=== PATIENT | female | born 1940 ===

== ENCOUNTER → 2020-10-22 10:33 | Outpatient (CLI) | payer MEDICARE, OTHER, SELFPAY ==
--- NOTE | 2020-10-22 | DI.MRI.S_ITS ---
PROCEDURE: MR KNEE LT WO CON INDICATIONS: UNILATERAL PRIMARY OSTEOARTHRITIS TECHNIQUE: Noncontrast sagittal PD fast spin echo and T2 fast spin echo with fat saturation, sagittal 3-D FLASH with fat saturation; coronal T1 spin echo and PD fast spin echo with fat saturation, and axial PD fast spin echo with fat saturation through the knee. COMPARISON: [facility] [place], CR, XR KNEE ARTHRITIC SERIES LT, 08/19/2020, 13:30. FINDINGS: Image quality: Excellent. Menisci: There is medial extrusion of the medial meniscus, which demonstrates linear and amorphous high signal intensity within the anterior horn, body, and posterior horn of the medial meniscus, demonstrating superior and inferior articular surface extension, indicating complex tearing. Linear horizontal and oblique high signal intensity within the lateral meniscal body is present demonstrating superior articular surface and inferior articular surface extension, indicating complex tearing. Cruciate ligaments: The anterior and posterior cruciate ligaments appear intact. Medial structures: The medial collateral ligament demonstrates mild surrounding T2 signal elevation, consistent with MCL strain. Moderate T2 signal elevation within the semimembranosus tendon at the tibial insertion site. Visualized portions of the pes anserinus tendons appear normal. No abnormal bursal fluid. Lateral structures: The lateral collateral ligament demonstrates mild insert ule T2 signal elevation at the femoral origin. The long and short heads of the biceps femoris tendon appear intact. The popliteus tendon appears normal. Iliotibial band appears normal. Anterior structures: The quadriceps and patellar tendons appear intact. Patellar alignment is normal. No femoral trochlear dysplasia or ventral trochlear prominence. No edema in the infrapatellar fat pad. Bones and cartilage: No bone marrow contusions or fractures. Mild tricompartmental periarticular osteophyte formation. Mild subchondral degenerative marrow edema within the weight-bearing aspects of the medial femoral condyle and medial tibial plateau. Severe articular cartilage loss diffusely overlies the weight-bearing aspects of the medial femoral condyle and medial tibial plateau. Mild articular cartilage loss diffusely overlies the weight-bearing aspects of the lateral femoral condyle and lateral tibial plateau. Joint space: There is a moderate knee joint effusion and a small ganglion cyst along the popliteus. Trujillo's cyst. Normal appearing synovial plicae are incidentally noted. IMPRESSION: 1. Tricompartmental osteoarthritis with associated articular cartilage loss. 2. Medial and lateral meniscal tearing. 3. MCL strain. 4. Low-grade partial thickness lateral collateral ligament tear. 5. Knee joint effusion and ganglion cyst along the popliteus. 6. Partial-thickness tearing of the semimembranosus at the tibial insertion site. Dictated by: Patricia Eubanks M.D. on 10/22/2020 at 14:00 Approved by: Patricia Eubanks M.D. on 10/22/2020 at 14:03
== END ==
PROVIDERS: Referring Provider Orthopaedic Surgery; Visit Provider Orthopaedic Surgery
DX: M17.12 Unilateral primary osteoarthritis, left knee (principal); S83.232A Complex tear of medial meniscus, current injury, left knee, initial encounter; S83.272A Complex tear of lateral meniscus, current injury, left knee, initial encounter; S83.412A Sprain of medial collateral ligament of left knee, initial encounter; M25.462 Effusion, left knee; M67.462 Ganglion, left knee
CPT/HCPCS: 73721

== ENCOUNTER → 2020-12-10 14:11 | Outpatient (CLI) | payer MEDICARE, OTHER, SELFPAY ==
[2020-12-10 15:12] LABS: Bacteria Urine None Seen; WBC Urine None Seen (0-5/HPF)
[2020-12-10 15:26] LABS: Appearance Urine UA CLEAR; Bilirubin Urine UA NEGATIVE (NEGATIVE); Color Urine UA YELLOW; Glucose Urine UA NEGATIVE (Negative); Ketones Urine UA NEGATIVE (NEGATIVE); Leukocyte Esterase Urine UA NEGATIVE (NEGATIVE); Nitrite Urine UA NEGATIVE (Negative); Occult Blood Urine UA 2+ (Negative); Protein Urine UA NEGATIVE (Negative); Specific Gravity Urine UA 1.015 (1.000-1.035); Urobilinogen Urine UA 0.2 E.U./dL (0.2)
[2020-12-10 15:33] LABS: Culture Indicated Urine Cult Not Indicated; RBC Urine 5-10/HPF (0-5/HPF); Squamous Epithelial Cell Urine None Seen (0-5/HPF)
== END ==
PROVIDERS: Referring Provider Orthopaedic Surgery; Visit Provider Orthopaedic Surgery
DX: Z01.818 Encounter for other preprocedural examination (principal); N39.0 Urinary tract infection, site not specified
CPT/HCPCS: 81001; 93005; 93010

== ENCOUNTER → 2021-01-05 09:51 | Outpatient (CLI) | payer MEDICARE, OTHER, SELFPAY ==
[2021-01-05 11:59] LABS: COVID19 -Nasal RAPID Negative (Negative)
== END ==
PROVIDERS: Visit Provider Student in an Organized Health Care Education/Training Program
DX: Z20.822 Contact with and (suspected) exposure to COVID-19 (principal)
CPT/HCPCS: 87635; C9803

== ENCOUNTER 2021-01-06 09:43 | Day surgery (SDC) | payer MEDICARE, OTHER, SELFPAY ==
[2020-12-30 08:06] VITALS: BMI 29.7
[2021-01-06] VITALS (10 sets, daily range): BP systolic 130–157; BP diastolic 53–69; PULSE 53–64; RESP 11–17; TEMP 36.1–36.4; O2SAT 93–100; BMI 29.7
[2021-01-06] MEDS: CELECOXIB 200 MG CAPSULE PO (10:10)
[2021-01-06] MEDS: VANCOMYCIN 1,000 MG/200 ML PIGGYBACK 200 MG IV (10:10)
[2021-01-06] MEDS: ACETAMINOPHEN 325 MG TABLET 975 MG PO (10:10)
[2021-01-06] MEDS: LACTATED RINGERS 1,000 ML 100 ML IV ×2 (10:20→14:20)
--- NOTE | 2021-01-06 10:25 | SUR.OPER ---
Supine on padded OR bed. Pillow under head, arms secured on padded armboards <90 degree abduction. Safety belt across torso. Non-operative leg secured with tape over blanket over lower leg. Operative leg secured in DeMayo/Daniel positioner. Foam padded brace at thigh of operative leg.
--- NOTE | 2021-01-06 10:41 | P.OP_ITS ---
Operative Date/Time/Diagnoses Date of procedure: 01/06/21 Time of procedure: 10:29 Pre-op diagnosis: left knee OA Post-op diagnosis: same Procedure & Clinicians Procedure: left total knee arthroplasty Same procedure as scheduled: Yes Indications: This is an 80-year-old female with severe left knee osteoarthritis to spot the operating room for a left total knee arthroplasty. Surgeon: Sara Schwartz Rn Corrections: Kevin Ortiz Anesthesia Type: General and Spinal Operative Notes Findings: Severe left knee osteoarthritis, good stability Closure Type: primary Specimen(s): none sent Prosthetic devices, grafts, tissues, transplants, or devices: [facility] 2 size 4 femur, size 3 tibia, +10 poly, 35 x 9 mm patella Applied: drain(s) Estimated Blood Loss (mL): 250 Blood products transfused: none Tourniquet time (min): 74 Procedure in detail: The patient was seen in the pre-operative area, where the patient identified the right knee as the operative site and this was marked with my initials. The patient received pre-operative antibiotics, and was taken to the operating room and placed on the operative table in the supine position. A fter satisfactory anesthesia, a real time trader out was performed. The right leg was encircled with a tourniquet about the proximal thigh, and the leg was prepared from the toes to the tourniquet with ChloroPrep in the usual fashion and draped through sterile drapes. The leg was elevated and exsanguinated with Eschmark bandage and the tourniquet inflated to [250] mmHg pressure. The knee was approached through an approximately 18 cm incision centered over the patella and carried into the knee through a medial parapatellar arthrotomy. A portion of the medial and lateral meniscus was resected. Soft tissue was carefully mobilized around the patella the patella was measured with a caliper. Bone was resected from the patella and the patellar height was reconstituted with up an appropriate sized patellar component. A cover was then placed on the patella. A small amount of additional medial and lateral meniscus was resected. The visionare guide fit well to the distal femur. It looked like an appropriate distal femoral cut and the cut was made without difficulty. The rotation was assessed and the appropriate size femoral guide was placed on the distal femur and finishing cuts were made. There was no evidence of notching. The anterior, posterior and chamfer cuts were then made. The posterior osteophytes and soft tissues were then removed. The posterior capsule was injected with part of a mixture of 60 ml 0.25% Marcaine mixed with 20 ml Exparel for post operative pain control. The remainder of this mixture was injected into the capsule and subcutaneous tissues during cement curing. The tibia was prepared and the visionaire guide fit well to the distal tibia. The rotation was assessed. The patient was placed in extension residual medial and lateral meniscus as well as any residual bone was carefully resected. [No] additional tibia was resected. Hemostasis was achieved especially posteriorly. Additional local was injected into the posterior capsule. The extension gap was assessed and additional releases for gap balancing were performed as necessary. The femoral component was trial was placed and the notch was finished. Trial tibial and femoral components were then placed and the knee placed through a range of motion. Range of motion was [0-130], with good stability throughout the range. The trials were then removed, and the tibia was finished. The bone was prepared with pulsatile lavage, and dried with a sponge. Cement was applied and the final prosthetics placed. Excess cement was removed during and after cement curing. A brief Betadine soak was performed. After confirming there was no extruded cement posteriorly, the final tibial insert was placed. The knee was copiously irrigated and the tourniquet deflated. Hemostasis was obtained with the Bovie cautery. A drain was placed and brought out superolaterally. The capsule was closed with interrupted Vicryl. The subcutaneous layer was closed with barbed sutures, and the skin with a running 3-0 V-Lock suture and Surgical glue. An Aquacel Ag dressing was applied and the patient was taken to recovery having tolerated the procedure well. Complications: none Post-operative Condition: stable Disposition: Acute Care Plan for aftercare: The patient will be maintained on a standard total knee replacement protocol with weight bearing as tolerated. The patient will receive Aspirin and sequential compression devices for DVT prophylaxis. The patient will be discharged home when safe for the home environment.
--- NOTE | 2021-01-06 10:41 | PM.PREOP ---
Pre-operative Note COVID-19 COVID-19 status: Negative Interval Note History & Physical reviewed/Exam performed by Physician: Yes Changes to H&P: No
[2021-01-06] MEDS: CEFAZOLIN 2 GM/100 ML FROZ.PIGGY IV ×2 (10:45→18:56)
[2021-01-06] MEDS: BUPIVACAINE LIPOSOME 266 MG/20 ML VIAL INJ (11:19)
[2021-01-06] MEDS: BUPIVACAINE 0.25% W/ EPI 30 ML VIAL 60 ML INJ (11:19)
[2021-01-06] MEDS: TRANEXAMIC ACID 1,000 MG VIAL 1000 MG INJ ×2 (11:20→12:39)
--- NOTE | 2021-01-06 13:50 | PC.NURSE ---
Day shift: Pt on AC unit from PACu at approx 1345. VS WNL. SUSAN and Aquacel CDI on left knee. Pt can move toes. 2L NC 96%. SCD's in place. Oriented to room and call light. Bed alarm on and Pt will be high fall risk for now. HR 61. Denies any pain or nausea. Per ANIMAL HEALTH TECHNICIAN last blood glucose 122. Call light in reach and bed alarm is on.
--- NOTE | 2021-01-06 14:00 | DI.RAD.S_ITS ---
PROCEDURE: XR KNEE RT 1TO2V INDICATIONS: LT TOT KNE TECHNIQUE: Two view(s) of the knee acquired. COMPARISON: None. FINDINGS: Bones: Patient is status post knee joint arthroplasty. Hardware components are in expected positions. Visualized bony structures are intact. Soft tissues: Overlying postoperative changes are noted. IMPRESSION: Normal alignment after right total knee arthroplasty. Dictated by: Pablito Moe M.D. on 01/06/2021 at 15:05 Approved by: Pablito Moe M.D. on 01/06/2021 at 15:06
--- NOTE | 2021-01-06 17:03 | PT.IIE ---
Current Diagnoses Unilateral primary osteoarthritis, left knee (01/06/21) Surgery Performed Operation Date: 01/06/21 12:15 Actual Procedures p Total Knee Arthroplasty(Left) - Sara Schwartz MD Surgical History (Last Updated 12/30/20 @ 09:10 by Jovita Hernandez, RN) History of bilateral tubal ligation (1974) History of hysterectomy Hx of appendectomy Hx of bilateral cataract extraction Medical History (Last Updated 12/30/20 @ 09:10 by Jovita Hernandez RN) Arthritis Bilateral leg cramps Diabetes Hearing impaired Osteoarthritis Physical Therapy Inpatient Evaluation/Re-Eval M1 PT/OT-IP Prior Functional Status Start: 01/06/21 17:11 Freq: NEEDED Status: Active Protocol: Document 01/06/21 17:03 DLM (Rec: 01/06/21 17:24 DL [id number]) Medical Review Prior Functional Status Medical History Reviewed Yes Diet/Fluid Consistency Regular Communication WFL Mobility and Gait Independent Activities of Daily Living and IADL's Independent Social History Household Members none Living Arrangements House Number of Floors (Floors) One Floor Number of Stairs To Enter/Railing? 3 RYLEY with one rail, can go around house to get to door without steps Home Environment High Toilet,Walk in Shower Home Equipment Front Wheel Walker,Four Wheel Walker,Shower Seat with Backrest Employment Status Retired Additional Social History Comment Son and his flew up from [place] to stay with her and help after discharge M2 PT-IP Current Condition Start: 01/06/21 17:11 Freq: NEEDED Status: Active Protocol: Document 01/06/21 17:03 DLM (Rec: 01/06/21 17:24 DL [id number]) Physical Therapy Current Condition Current Condition Evaluation Date 01/06/21 Treatment Diagnosis left TKA, impaired gait Onset Date 01/06/21 Weight Bearing Status Weight Bearing Status Weight Bear as Tolerated M3 PT-IP Subjective Start: 01/06/21 17:11 Freq: NEEDED Status: Active Protocol: Document 01/06/21 17:03 DLM (Rec: 01/06/21 17:24 DL [id number]) Subjective Physical Therapy Visit Type Type Initial Evaluation Visit Start Time 16:40 Visit Stop Time 15:03 Total Visit Minutes 23 Number of INDEPENDENT CONTRACTOR Visits 0 Physical Therapy Visit Comments Patient Comments She reports she is hungry, having little to no pain in her knee Patient Goals discharge home Therapy Pain Assessment Pain When Pain Assessed During Mobility Pain Present Pain Present Pain Reported Location Left Knee Intensity 2 Scale Used Numeric (0 - 10) Description Aching Pain Management Techniques Elevation M4 PT-IP Mobility and Gait Start: 01/06/21 17:11 Freq: NEEDED Status: Active Protocol: Document 01/06/21 17:03 [facility] (Rec: 01/06/21 17:24 [facility] [id number]) PT-Bed Mobility Assessment Supine to Sit Supine to Sit Standby Assistance Sit to Supine Sit to Supine Standby Assistance Scooting Scooting to Edge of Bed Independent PT-Transfer Assessment Sit to and From Stand Sit to and from Stand Contact Guard Assistance Equipment Transfer Assistive Device Gait Belt,Front Wheeled Walker Transfers Transfer Destination Chair Transfer Technique Stand Step Pivot Transfer Ability Level of Assist Contact Guard Assistance Comments Mobility Comments pt sat up edge of bed, stood with fWW then progressed to getting up to recliner, pt reports feeling a little whoozy when getting up to chair this visit, pt left up for dinner, O2 sat 94% on room air, noted BP high this afternoon, she describes mild increase in knee pain with weight bearing in standing PT-Balance Assessment Sitting Balance and Reactions Static Sitting Balance Ability Normal Dynamic Sitting Balance Ability Normal Standing Balance and Reactions Static Standing Balance Ability Good Dynamic Standing Balance Ability Fair Device Used FWW M5 PT-IP Objective Assessments Start: 01/06/21 17:11 Freq: NEEDED Status: Active Protocol: Document 01/06/21 17:03 [facility] (Rec: 01/06/21 17:24 [facility] [id number]) Orientation Orientation/Cognition Level of Alertness Alert Orientation Name,Age,Birthday,Month,Date, Year,Day of Week,Place, Situation Language Function Ability No Deficits Noted Safety Awareness Understands Safety Issues Memory Description No Deficits Noted Gross Range of Motion Upper Extremity ROM Assessment Within Functional Limits Lower Extremity ROM Assessment Left Impaired Impairments knee 0-90 degrees post-op TKA, minimal pain at this time, no numbness reported Strength Upper Extremity Strength Assessment Within Functional Limits Lower Extremity Strength Assessment Left Impaired Hip needs assist to lift LE off bed Knee knee ext 3-/5 Ankle DF 4/5 Coordination Assessment Gross Coordination Gross Coordination WNL Sensation Assessment Sensation Gross Sensation WNL Muscle Tone Muscle Tone WNL Yes M6 PT-IP Treatment Start: 01/06/21 17:11 Freq: NEEDED Status: Active Protocol: Document 01/06/21 17:03 DLM (Rec: 01/06/21 17:24 DLM [id number]) Physical Therapy Treatment Exercises Exercises Ankle Pumps,Heel Slides Education Education Provided Weight Bearing Status,Post-Op Packet,Safety M7 PT-IP Assessment and Plan Start: 01/06/21 17:11 Freq: NEEDED Status: Active Protocol: Document 01/06/21 17:03 DLM (Rec: 01/06/21 17:24 DL [id number]) PT Summary Assessment and Plan Potential Rehabilitation Potential Excellent Status of Condition at Evaluation Evolving Summary Impairments Pain,ROM,Strength,Balance,Bed Mobility,Transfers,Gait, Activity Tolerance Assessment Summary Zaki is alert and is willing to work with physical therapy. She reports having little pain in her knee at this time. She tolerated getting up to recliner for dinner. She c/o feeling a little whoozy during her transfer but it resolved with sitting rest break. Pt left up for dinner with her nurse aware and her call light close . Will work towards discharge home tomorrow if she continues to progress well. She reports having family assist at discharge. She will need stair training before discharge. Goals Bed Mobility Goal Independent Transfer Goal Independent,Front Wheeled Walker Gait Goal Independent,Front Wheel Walker Gait Distance 150 feet Other Goals Up and down 3 steps with rail and cane with SBA Days to Meet Goals 2 Frequency of Treatment Frequency Of Treatment Twice a Day Treatment Plan Physical Therapy Treatment Plan Bed Mobility Training,Transfer Training,Gait Training, Therapeutic Exercise,Balance Retraining,Post Op Education, Discharge Planning,Hot or Cold Pack,Neuromuscular Re-ed Recommendations To Nursing Amount of Assist Needed 1 Person Assist Discharge Recommendations PT Discharge Recommendations Home with Assistance, Outpatient PT Other Discharge Recommendations Son plans to stay with her to assist after discharge Equipment Needed for Home Before pt has her FWW from home in Discharge her room Transportation Needs at Discharge Private Vehicle
[2021-01-06] MEDS: ONDANSETRON 4 MG/2 ML INJ IV (17:48)
[2021-01-06] MEDS: IBUPROFEN 400 MG TABLET PO ×2 (17:48→22:11)
--- NOTE | 2021-01-06 18:57 | PC.NURSE ---
PATIENT HAS BEEN VERY DROWSEY THIS SHIFT, UP TO CHAIR WITH PT AND TO BATHROOM TO VOID.DENIES PAIN, DID HAVE SOME NAUSEA WITH DINNER, RECEIVED ZOFRAN WORKED WELL.BACK TO BED AND TO SLEEP
[2021-01-06] MEDS: ACETAMINOPHEN 325 MG TABLET 650 MG PO (22:10)
[2021-01-06] MEDS: DOCUSATE 100 MG CAPSULE PO (22:10)
[2021-01-06] MEDS: ASPIRIN EC 81 MG TABLET PO (22:11)
[2021-01-07] VITALS: BP 149/70; PULSE 55; RESP 18; TEMP 36.6; O2SAT 94
[2021-01-07] MEDS: IBUPROFEN 400 MG TABLET PO ×3 (01:14→08:34)
[2021-01-07] MEDS: LACTATED RINGERS 1,000 ML 100 ML IV (01:14)
--- NOTE | 2021-01-07 01:49 | PC.NURSE ---
Cy w/ significant shadow drainage, changed @ 0130. Pt tolerated well. No active bleeding from staple site.
[2021-01-07] MEDS: CEFAZOLIN 2 GM/100 ML FROZ.PIGGY IV (03:24)
[2021-01-07 05:30] VITALS: BP 152/69; PULSE 55; RESP 18; TEMP 36.6; O2SAT 97
[2021-01-07 06:03] LABS: Hematocrit 34.9 % (36-46); Hemoglobin 11.4 g/dL (12.0-16.0)
[2021-01-07 07:55] VITALS: BP 169/70; PULSE 54; RESP 15; TEMP 36.4; O2SAT 94
[2021-01-07] MEDS: DOCUSATE 100 MG CAPSULE PO (08:34)
[2021-01-07] MEDS: ACETAMINOPHEN 325 MG TABLET 650 MG PO (08:34)
[2021-01-07] MEDS: ASPIRIN EC 81 MG TABLET PO (08:34)
--- NOTE | 2021-01-07 09:28 | PC.NURSE ---
Patient is sitting up in the chair for breakfast this morning. She denies pain, ibuprofen and tylenol have been adequate for pain control. Aquacel dressing to knee is cdi and cms wnl. Patient will work with physical therapy soon.
--- NOTE | 2021-01-07 10:06 | PT.IPTN ---
Current Diagnoses Unilateral primary osteoarthritis, left knee (01/06/21) Surgery Performed Operation Date: 01/06/21 12:15 Actual Procedures p Total Knee Arthroplasty(Left) - Sara Schwartz MD Physical Therapy Treatment Note M2 PT-IP Current Condition Start: 01/06/21 17:11 Freq: NEEDED Status: Active Protocol: Document 01/06/21 17:03 DLM (Rec: 01/06/21 17:24 DLM [id number]) Physical Therapy Current Condition Current Condition Evaluation Date 01/06/21 Treatment Diagnosis left TKA, impaired gait Onset Date 01/06/21 Weight Bearing Status Weight Bearing Status Weight Bear as Tolerated M3 PT-IP Subjective Start: 01/06/21 17:11 Freq: NEEDED Status: Active Protocol: Document 01/07/21 09:32 SP (Rec: 01/07/21 11:08 SP [id number]) Subjective Physical Therapy Visit Type Type Treatment Note Visit Start Time 09:32 Visit Stop Time 10:06 Total Visit Minutes 34 Notes Vitals taken pre mobility: BP 145/50 Son attended 1/2 of treatment, provided stand by assist during stair mgt and gait. Number of NURSE CASE MANAGER Visits 1 Physical Therapy Visit Comments Patient Comments Pt agreeable to working with therapy. Patient Goals Discharge home with son and DIL to assist her. Therapy Pain Assessment Pain When Pain Assessed During Mobility Pain Present Pain Present Pain Reported Location Left Knee Intensity 4 Scale Used Numeric (0 - 10) Description Pressure,Tightness,With Movement Pain Behaviors Facial Grimacing,Wincing Pain Management Techniques Apply Cold,Elevation,Re- positioning,Timing of Activity with Medications M4 PT-IP Mobility and Gait Start: 01/06/21 17:11 Freq: NEEDED Status: Active Protocol: Document 01/07/21 09:32 SP (Rec: 01/07/21 11:08 SP [id number]) PT-Bed Mobility Assessment Sit to Supine Sit to Supine Standby Assistance Scooting Scooting to Edge of Bed Independent PT-Transfer Assessment Sit to and From Stand Sit to and from Stand Standby Assistance,Use of Upper Extremities Equipment Transfer Assistive Device Gait Belt,Front Wheeled Walker Orthotic/Prosthetic Devices or Brace: No Transfers Transfer Destination Bed Transfer Technique Pt ambulated using FWW Transfer Ability Level of Assist Contact Guard Assistance Comments Mobility Comments Pt seated in chair when arrived. Sit>stand using BUE, ambulated further into hallway , completed stair mgt and ambulated back to room using FWW SBA. stand>sit SBA with good safety hand placement and positioning of FWW, Sit> supine using gait belt and RLE to assist LLE as needed for repositioning onto bed. Pt completed heel slides w/ use of GB for self support more challenging ROM today, ankle pumps, quad sets, SAQ. Pt had call light and all needs in reach before left. Son in room . Gait Assessment Gait Gait Assistance Required: Standby Assistance Distance (Feet) 450 Able to Maintain Weight Bearing Status Yes During Gait Assistive Devices Assistive Device Gait Belt,Front Wheeled Walker Orthotic/Prosthetic Devices or Brace: No Gait Deviations General Gait Pattern Antalgic,Decreased Stride Length,Decreased Feet Clearance Factors Limiting Gait Function Factors Limiting Gait Function Decreased Activity Tolerance, Decreased Strength,Limited Range of Motion,Pain Comments Gait Comments Pt receiprocal gait patterning using FWW SBA, good demonstration of knee flexion during gait phases, no cuing required. Stair Climbing Assessment Evaluation Level of Assist On Stairs Standby Assistance Devices Stair Climbing Assistive Devices Right Railing Technique/Endurance Stair Climbing Direction Ascend and Descend Stair Climbing Technique Step to Step Number of Steps Climbed 3 Stair Climbing Set # Repetitions (reps) 1 Comments Stair Climbing Comments Ascend/ descend 3 stairs using RHR step to patterning with proper LE sequencing, SBA to assimulate enterance of garage at home. PT-Balance Assessment Sitting Balance and Reactions Static Sitting Balance Ability Normal Dynamic Sitting Balance Ability Normal Standing Balance and Reactions Static Standing Balance Ability Good Dynamic Standing Balance Ability Fair Device Used FWW M5 PT-IP Objective Assessments Start: 01/06/21 17:11 Freq: NEEDED Status: Active Protocol: Document 01/06/21 17:03 [facility] (Rec: 01/06/21 17:24 [facility] [id number]) Orientation Orientation/Cognition Level of Alertness Alert Orientation Name,Age,Birthday,Month,Date, Year,Day of Week,Place, Situation Language Function Ability No Deficits Noted Safety Awareness Understands Safety Issues Memory Description No Deficits Noted Gross Range of Motion Upper Extremity ROM Assessment Within Functional Limits Lower Extremity ROM Assessment Left Impaired Impairments knee 0-90 degrees post-op TKA, minimal pain at this time, no numbness reported Strength Upper Extremity Strength Assessment Within Functional Limits Lower Extremity Strength Assessment Left Impaired Hip needs assist to lift LE off bed Knee knee ext 3-/5 Ankle DF 4/5 Coordination Assessment Gross Coordination Gross Coordination WNL Sensation Assessment Sensation Gross Sensation WNL Muscle Tone Muscle Tone WNL Yes M6 PT-IP Treatment Start: 01/06/21 17:11 Freq: NEEDED Status: Active Protocol: Document 01/07/21 09:32 SP (Rec: 01/07/21 11:08 SP [id number]) Physical Therapy Treatment Exercises Exercises Ankle Pumps,Quad Sets,Heel Slides,Short Arc Quads,Seated Knee Flexion/Extension Knee ROM Measurement approx 85 deg using gait belt strap self assist Education Education Provided Weight Bearing Status,Post-Op Packet,Safety M7 PT-IP Assessment and Plan Start: 01/06/21 17:11 Freq: NEEDED Status: Active Protocol: Document 01/07/21 09:32 SP (Rec: 01/07/21 11:08 SP [id number]) PT Summary Assessment and Plan Potential Rehabilitation Potential Excellent Status of Condition at Evaluation Evolving Summary Impairments Pain,ROM,Strength,Balance,Bed Mobility,Transfers,Gait, Activity Tolerance Progress Towards Goals Progressing Toward Goals Assessment Summary Pt's BP improved 145/ 50 pre mobility. She completes all mobility SBA using FWW further distance 450 ft and R HR during stair mgt. Son complete caregiver training and able to assist pt when cleared to [place] home. Pt is all let up with outpt PT on Tuesday. Pt is ok to return home with family to assist her. Goals Bed Mobility Goal Independent Transfer Goal Independent,Front Wheeled Walker Gait Goal Independent,Front Wheel Walker Gait Distance 150 feet Other Goals Up and down 3 steps with rail and cane with SBA Days to Meet Goals 2 Frequency of Treatment Frequency Of Treatment Twice a Day Treatment Plan Physical Therapy Treatment Plan Bed Mobility Training,Transfer Training,Gait Training, Therapeutic Exercise,Balance Retraining,Post Op Education, Discharge Planning,Hot or Cold Pack,Neuromuscular Re-ed Other Recommendations and Next Treatment Ther ex, gait w/ FWW, bed Focus mobility using strap if needed . Recommendations To Nursing Amount of Assist Needed Standby Assistance Discharge Recommendations PT Discharge Recommendations Home with Assistance, Outpatient PT Other Discharge Recommendations Son plans to stay with her to assist after discharge Equipment Needed for Home Before pt has her FWW from home in Discharge her room Transportation Needs at Discharge Private Vehicle
--- NOTE | 2021-01-07 10:54 | CM.IDA ---
Initial DCP Assessment Note Pt is a 80 yo female, resident of [place], now POD#1 from left knee surgery w/ Dr Schwartz PCP: Kacey Talbot Payer: [employer] Reviewed chart, pt discussed in multidisciplinary rounds this morning, status is OPB and is expected to DC home today. Therapy has cleared pt for return home w/family to assist and pt has planned for home, an additional therapy session is pending this morning to include stair training. No needs expected from DC planning team although will remain available in case this changes today. SHABBIR Vyas Discharge Planning/Care Management CM Discharge Assessment Start: 01/07/21 10:50 Freq: Status: Active Protocol: Document 01/07/21 10:50 ALEX (Rec: 01/07/21 10:54 ALEX [id number]) Discharge Planning Assessment Assigned Tank Driver SHABBIR Nobles DPOA/Assigned Designee Name Eliecer Mckee, son christine Cardenas Contact Information [phone], Advance Directives? No History Provided By Patient,Medical Record Prior Living Arrangements House Household Members none Type of transporation used prior to Drives own vehicle admit Independent with ADL's Yes Is patient alert and oriented? Yes Patient/Family Preference OP PT Therapy Barriers to Discharge No Discharge Plan Home Transportation Arrangement Family Referrals Initiated None needed
[2021-01-07 10:57] VITALS: O2SAT 97
--- NOTE | 2021-01-07 11:13 | P.DS_ITS ---
History of Present Illness History of Present Illness Date Patient Seen: 01/07/21 Time Patient Seen: 11:13 Chief complaint: OPB Narrative: Pain is mild. Denies fever or chills. No nausea vomiting. Patient's son is home to help her. Discharge Providers Provider Discharge Date: 01/07/21 Primary care physician: Kacey Talbot MD Consults: 12/30/20 09:28 Consult to Anesthesiology Routine Comment: Consulting Provider: Anesthesiologist Reason for consultation: PAC courtesy re: Abnormal Pre-op EKG, no prior to compare 01/06/21 06:00 Consult to Anesthesiology Routine Comment: Consulting Provider: Anesthesiologist Reason for consultation: Regional block for post operative pain control 01/06/21 13:50 Consult to Discharge Planning Routine Comment: Consult to Physical Therapy Evaluate & Treat Comment: Physician Instructions: postop TKA protocol Consult to Respiratory Therapy Evaluate & Treat Comment: Physician Instructions: Evaluate and treat Discharge provider: Kevin Ortiz PA-C Summary Hospital Course Discharge Diagnosis: Knee osteoarthritis Hospital Course: Procedure: left total knee arthroplasty Same procedure as scheduled: Yes Indications: This is an 80-year-old female with severe left knee osteoarthritis to spot the operating room for a left total knee arthroplasty. Surgeon: Sara Schwartz Molding Manager: Kevin Ortiz Anesthesia Type: General and Spinal Operative Notes Findings: Severe left knee osteoarthritis, good stability Closure Type: primary Specimen(s): none sent Prosthetic devices, grafts, tissues, transplants, or devices: [employer] BCS 2 size 4 femur, size 3 tibia, +10 poly, 35 x 9 mm patella Applied: drain(s) Estimated Blood Loss (mL): 250 Blood products transfused: none Tourniquet time (min): 74 Patient admitted to the hospital for left total knee arthroplasty. Patient consented to the same. Patient taken operating room yesterday underwent left total knee arthroplasty. Patient back in her room recovering well and is in stable condition. Patient stable for discharge. Status at Discharge Cognitive/behavioral status at discharge: at baseline, oriented Functional status at discharge: uses cane/walker Overall status at discharge: patient is progressing back to baseline Time Spent with Patient Time spent: Less than 30 minutes Exam Vital Signs (past 8 hours): - 01/07/21 05:30 01/07/21 07:55 01/07/21 10:57 Temperature 97.9 F 97.6 F Pulse Rate 55 L 54 L Respiratory Rate 18 15 Blood Pressure 152/69 H 169/70 H Pulse Oximetry 97 94 97 Oxygen Delivery Method Room Air Oxygen Flow Rate 0 Narrative Exam Narrative: Patient resting comfortably in bed in no apparent distress. Left knee dressing is clean, dry and intact. Neurovascular status in the intact distal left lower extremity. Objective Labs Result Diagrams: 01/07/21 05:39 Labs: Laboratory Results - last 24 hr 01/07/21 05:39 Hgb 11.4 L Hct 34.9 L PFSH Medical History Arthritis Bilateral leg cramps Diabetes Hearing impaired Osteoarthritis Surgical History History of bilateral tubal ligation (1974) History of hysterectomy Hx of appendectomy Hx of bilateral cataract extraction Social History household members: none Smoking Status: Never smoker alcohol intake: never Discharge Assessment & Plan Assessment and Plan Assessment: Patient progressing as expected status post left total knee arthroplasty. Plan of Treatment: Patient will be maintained on standard total knee replacement protocol with weight-bearing as tolerated. Aspirin b.i.d.. Discharge home today. Discharge Plan Discharge Plan Patient Disposition: Home Provider Discharge Comment: discharge to home when cleared by therapy Discharge orders & Medications Discharge Orders: Discharge (Order); Ordered 01/07/21 Ordered By: Kevin Ortiz Prescriptions: New acetaminophen 325 mg Tablet 650 mg PO TID Qty: 60 RF: 0 aspirin 81 mg Tablet,Delayed Release (Dr/Ec) 81 mg PO BID Qty: 60 RF: 0 ibuprofen 400 mg Tablet 400 mg PO Q4HR Qty: 90 RF: 0 tramadol 50 mg tablet 50 mg PO Q6H PRN (Reason: pain) Qty: 30 RF: 0 Discontinued ibuprofen 600 mg Tablet 600 mg PO DAILY PRN (Reason: Pain) RF: 0 mupirocin 2 % ointment 1 applic TOPICAL BID RF: 0 Follow up/Referrals: Kacey Talbot MD [Primary Care Provider] - Sara Schwartz MD [Physician] - (Two weeks) Diet/Activity/Treatments Diet: Diet as Tolerated Activity: walk multiple times a day. Cold/Heat Therapy: Use ice the knee multiple times a day. Skin/Wound/Dressing Care Report to your healthcare provider any signs of infection, such as:: chills, fever, night sweats, increased pain, unusual drainage and unusual redness Dressing: Remove Nicholas wrap, Leave other dressing on, okay to shower Visit Report/Discharge Packet Instructions: DI for Knee Replacement Stand Alone Forms: Surgery Discharge Discharge Data Primary Care Provider: Kacey Talbot Attending Provider: Sara Schwartz VTE Deep Vein Thrombosis/Pulmonary Embolism Present on Admission: No
[2021-01-07 11:44] VITALS: BP 130/75; PULSE 75; RESP 15; TEMP 36.6; O2SAT 97
== END 2021-01-07 13:02 | disposition home or self-care (01) ==
LOC: OR 09:48 → AC 09:48
PROVIDERS: PCP Internal Medicine; Referring Provider Orthopaedic Surgery; Visit Provider Orthopaedic Surgery
PROC: 0SRD0JZ Replacement of Left Knee Joint with Synthetic Substitute, Open Approach (ICD-10-PCS; CPT 27447; principal; 2021-01-06 12:15)
DX: M17.12 Unilateral primary osteoarthritis, left knee (principal); E11.9 Type 2 diabetes mellitus without complications
CPT/HCPCS: 27447; 36415; 73560; 82962; 85014; 85018; 94762; 97116; 97162; 97530; C1776; C9290; J0690; J1100; J2250; J2274; J2405; J2704; J3010

== ENCOUNTER → 2021-01-21 14:33 | Outpatient (CLI) | payer MEDICARE, OTHER, SELFPAY ==
[2021-01-06 18:02] VITALS: BMI 29.7
--- NOTE | 2021-01-21 | DI.US.S_ITS ---
PROCEDURE: US PERIPH VENOUS LOW EXTREM LT INDICATIONS: POST-OP EDEMA TECHNIQUE: Real-time imaging, as well as color and pulse Doppler interrogation, were performed of the lower extremity deep veins from the inguinal ligament to the popliteal fossa. COMPARISON: None. FINDINGS: The common femoral, femoral and popliteal veins are normally compressible, and free of intraluminal thrombus. Color and pulse Doppler demonstrate normal phasic intraluminal flow. There is normal augmentation response to distal compression maneuver. IMPRESSION: Negative for deep venous thrombosis. Dictated by: Yomi Goodwin M.D. on 01/21/2021 at 14:38 Approved by: Yomi Goodwin M.D. on 01/21/2021 at 14:38
== END ==
PROVIDERS: PCP Internal Medicine; Referring Provider Orthopaedic Surgery; Visit Provider Orthopaedic Surgery
DX: M17.12 Unilateral primary osteoarthritis, left knee (principal); R60.9 Edema, unspecified; T81.89XA Other complications of procedures, not elsewhere classified, initial encounter
CPT/HCPCS: 93971

== ENCOUNTER → 2024-06-11 15:13 | Outpatient (CLI) | payer MEDICARE, OTHER, SELFPAY ==
[2021-01-06 18:02] VITALS: BMI 29.7
--- NOTE | 2024-06-11 15:14 | DI.ECHO.S_ITS ---
[facility] : : [address] : [place] [address] : : [id number] : : Phone: [phone] Echocardiogram Report + + :Name: IAN VARGAS Study Date: 06/11/2024 Height: 62 in : :[facility] ReadingLocation: Weight: 165 lb : : Gender: Female BSA: 1.8 m2 : :: 1940 Age: 84 yrs BP: 190/85 mmHg: :Reason For Study: CARDIAC MURMUR : :Ordering Physician: JESSE, : :GLORIA Viramontes Performed By: Sergio Albert : :Referring: GLORIA MOLINA : + + Interpretation Summary The left ventricle is normal in size. The left ventricle is hyperdynamic. The ejection fraction is estimated to be 75-80%. An intracavitary gradient is suspected. The right ventricle is normal in size and function. There is severe mitral annular calcification. The mitral valve mean gradient is 5 mmHg. There is mild mitral stenosis. There is mild mitral regurgitation. There is mild tricuspid regurgitation. The right ventricular systolic pressure is estimated to be at least 52 mmHg based on an estimated right atrial pressure of 8 mm Hg. Findings were discussed with [facility] physician. Procedure: A two-dimensional transthoracic echocardiogram with color flow and Doppler was performed. The study quality was technically adequate. There is no prior echocardiogram noted for this patient. The patient was in normal sinus rhythm during the exam. Left Ventricle: The left ventricle is normal in size. There is normal left ventricular wall thickness. An intracavitary gradient is suspected. There is no ventricular septal defect visualized. The ejection fraction is estimated to be 75-80%. The left ventricle is hyperdynamic. There are no focal wall motion abnormalities. MV E/A: 0.70 Med Peak E' Ward: 4.5 cm/sec E/E' med: 26.3. Right Ventricle: The right ventricle is normal in size and function. Atria: The left atrium is moderately dilated. Right atrial size is normal. There is no Doppler evidence for an atrial septal defect. Mitral Valve: There is severe mitral annular calcification. There is mild mitral stenosis. The mitral valve mean gradient is 5 mmHg. There is mild mitral regurgitation. Aortic Valve: The aortic valve is trileaflet. The aortic valve opens well. The aortic valve is slightly calcified. There is no aortic valve stenosis. No aortic regurgitation is present. Tricuspid Valve: The tricuspid valve is normal. There is mild tricuspid regurgitation. The right ventricular systolic pressure is estimated to be at least 52 mmHg based on an estimated right atrial pressure of 8 mm Hg. Pulmonic Valve: The pulmonic valve is not well seen, but is grossly normal. There is no pulmonic valvular regurgitation. Great Vessels: The aortic root is normal size. The dimensions of the ascending aorta are normal. The pulmonary artery is normal size. The IVC is dilated (diameter is greater than 2.1 cm) yet it collapses greater than 50% with a sniff. This suggests a right atrial pressure of 8 mm Hg. Pericardium/ Pleura There is no pericardial effusion. There is no pleural effusion. MMode/2D Measurements & Calculations LVIDd: 4.2 cm LVOT diam: 1.9 cm LVIDs: 2.3 cm Ao root diam: 2.9 cm FS: 44.6 % asc Aorta Diam: 2.8 cm EPSS: 0.64 cm Ao Arch Diam (Prox Trans): 2.1 cm IVSd: 0.96 cm LVPWd: 0.96 cm LV cam. diameter/BSA (cm/m^2): 2.4 LV sys. diameter/BSA (cm/m^2): 1.3 LA A2 area: 22.2 cm2 RA long axis: 4.8 cm LA A4 area: 22.9 cm2 RA area: 13.7 cm2 LA length (vol): 6.0 cm RA vol: 33.3 ml LA vol: 72.0 ml RA : 18.9 ml/m2 LA vol index: 40.9 ml/m2 IVC diam: 2.1 cm RVD1 (basal): 3.7 cm RVD2 (mid): 3.1 cm TAPSE: 2.8 cm Doppler Measurements & Calculations Ao V2 max: 191.5 cm/sec LVOT Max Ward: 170.5 cm/sec Ao V2 mean: 135.5 cm/sec LV V1 max P.6 mmHg Ao max P.7 mmHg LV V1 VTI: 39.4 cm Ao mean P.1 mmHg YUSUF(I,D): 2.1 cm2 Ao V2 VTI: 50.0 cm YUSUF(V,D): 2.4 cm2 sev ratio: 0.79 YUSUF indexed to BSA (cm^2/m^2): 1.2 MV E max ward: 117.3 cm/sec TR max ward: 334.6 cm/sec MV A max ward: 167.1 cm/sec TR max P.8 mmHg MV E/A: 0.70 PA V2 max: 94.0 cm/sec Med Peak E' Ward: 4.5 cm/sec PA V2 mean: 58.9 cm/sec E/E' med: 26.3 PA mean P.6 mmHg Lat Peak E' Ward: 3.8 cm/sec PA pr(Accel): 31.0 mmHg E/E' lat: 30.8 E/e' average: 28.6 MV dec time: 0.36 sec MVA(VTI): 1.8 cm2 MV V2 mean: 100.7 cm/sec SV(LVOT): 106.2 ml MV mean P.9 mmHg MV V2 VTI: 59.0 cm Reading Physician:12:16 PM
== END ==
LOC: ECHO 15:14
PROVIDERS: PCP Internal Medicine; Referring Provider Nurse Practitioner Family; Visit Provider Nurse Practitioner Family
DX: I08.1 Rheumatic disorders of both mitral and tricuspid valves (principal); R01.1 Cardiac murmur, unspecified
CPT/HCPCS: 93306

== ENCOUNTER 2024-06-11 16:30 | Emergency (ER) | payer MEDICARE, OTHER, SELFPAY ==
[2021-01-06 18:02] VITALS: BMI 29.7
[2024-06-11] VITALS (19 sets, daily range): BP systolic 184–227; BP diastolic 77–97; PULSE 59–85; RESP 13–32; TEMP 36.6–36.8; O2SAT 93–99; BMI 30.2
--- NOTE | 2024-06-11 16:43 | EKG_ITS ---
[address] [address] Test Date: 2024-06-11 Pat Name: Zaki Mckee Department: [facility] Room: Gender: Female System Software Programmer: ELVIS : 1940 Requested By: Order Number: [id number] Reading MD: Luan Forrester MD Measurements Intervals [place] Rate: 59 P: 40 IA: 180 QRS: 21 QRSD: 102 T: 27 QT: 458 QTc: 453 Interpretive Statements Sinus bradycardia RSR' or QR pattern in V1 suggests right ventricular conduction delay Electronically Signed On 06-11-2024 17:03:00 PDT by Luan Forrester MD
--- NOTE | 2024-06-11 16:43 | DI.RAD.S_ITS ---
PROCEDURE: XR CHEST 1V INDICATIONS: chest pain TECHNIQUE: One view of the chest was acquired. COMPARISON: None. FINDINGS: Surgical changes and devices: None. Lungs and pleura: Lungs are clear. No pleural effusions or pneumothorax. Mediastinum: Mediastinal contours appear normal. Heart size is prominent. Bones and chest wall: No suspicious bony lesions. Overlying soft tissues appear unremarkable. IMPRESSION: No acute cardiopulmonary abnormality is seen. Dictated by: Reji Antonio M.D. on 06/11/2024 at 17:12 Approved by: Reji Antonio M.D. on 06/11/2024 at 17:13
[2024-06-11 17:24] LABS: Add Manual Diff / Slide Review NO; Basophils Absolute Auto 0 /uL (0-100); Basophils Percent Auto 0.7 % (0-2); Eosinophils Absolute Auto 100 /uL (0-450); Eosinophils Percent Auto 1.8 % (2-4); Hematocrit 35.6 % (36-46); Hemoglobin 11.8 g/dL (12.0-16.0); INR 0.9 (0.9-1.3); Lymphocytes Absolute Auto 1400 /uL (1100-4500); Mean Corpuscular Hemoglobin 27.9 PG (26-34); Mean Corpuscular Volume 84.6 fL (80-100); Monocytes Absolute Auto 500 /uL (0-900); Monocytes Percent Auto 9.2 % (3-14); Neutrophils Absolute Auto 3300 /uL (1500-7000); Neutrophils Percent Auto 62.3 % (50-75); Platelet Count 264 X10^3/uL (150-400); Prothrombin Time 10.6 SECONDS (9.4-12.5); Red Blood Cell Count 4.21 X10^6/uL (4.0-5.2); Red Cell Distribution Width 13.7 % (11.6-14.8); White Blood Cell Count 5.3 X10^3/uL (4.5-11.0)
[2024-06-11 17:27] LABS: PTT Partial Thromboplastin Tim 39 SECONDS (25.1-36.5)
[2024-06-11 17:30] LABS: Alanine Aminotransferase 9 IU/L (<35); Albumin 4.2 g/dL (3.5-5.0); Albumin Globulin Ratio 1.3 (1.0-2.8); Alkaline Phosphatase 94 U/L (38-126); Aspartate Aminotransferase 30 IU/L (14-36); BUN Creatinine Ratio 22.2 (6-22); Bilirubin Total 0.5 mg/dL (0.2-1.3); Blood Urea Nitrogen 18 mg/dL (7-17); Carbon Dioxide 31 mmol/L (22-32); Chloride 96 mmol/L (98-107); Creatine Kinase 138 U/L (30-135); Estimated Glomerular Filt Rate > 60 mL/min (>60); Globulin 3.2 g/dL (1.7-4.1); Glucose 134 mg/dL (80-110); HEMOLYSIS < 15 (0-50); Lipase 50 U/L (23-300); Magnesium 1.9 mg/dL (1.6-2.3); Potassium 3.7 mmol/L (3.4-5.1); Sodium 133 mmol/L (137-145); Total Protein 7.4 g/dL (6.3-8.2)
--- NOTE | 2024-06-11 17:39 | DI.CT.S_ITS ---
PROCEDURE: CT HEAD/BRAIN WO CON INDICATIONS: dizziness, nausea, HTN TECHNIQUE: Noncontrast 4.5 mm thick angled axial sections acquired from the foramen magnum to the vertex, with coronal and sagittal reformats. For radiation dose reduction, the following was used: automated exposure control, adjustment of mA and/or kV according to patient size. COMPARISON: None. FINDINGS: Image quality: Motion degraded CSF spaces: Basal cisterns are patent. No extra-axial fluid collections. The ventricles are symmetric in size and shape. Brain: No intracranial bleeds or masses. There is cerebral volume loss for age, with resultant ventricular and sulcal prominence. There are periventricular and deep white matter chronic small vessel ischemic changes. There is intracranial internal carotid artery atherosclerosis. Skull and face: Calvarium and visualized facial bones appear intact, without suspicious lesions. Sinuses: Visualized sinuses and mastoids are clear. IMPRESSION: Motion degraded exam. No definite acute intracranial pathology. Dictated by: Reji Antonio M.D. on 06/11/2024 at 18:26 Approved by: Reji Antonio M.D. on 06/11/2024 at 18:27
--- NOTE | 2024-06-11 17:40 | DI.CT.S_ITS ---
PROCEDURE: CT ANGIO HEAD AND NECK INDICATIONS: dizziness, headache, nausea TECHNIQUE: After the administration of intravenous contrast, 1 mm thick sections acquired from the aortic arch through the [place] of [place]. 3-dimensional kylyvzv-jisoralxh-lzaqijweqa (MIP) and/or volume rendering reformats were acquired of the central intracranial vasculature and neck separately. For radiation dose reduction, the following was used: automated exposure control, adjustment of mA and/or kV according to patient size. COMPARISON: [facility], CT, CT HEAD/BRAIN WO [facility], 06/11/2024, 17:52. FINDINGS: Image quality: Limited by bolus timing, with venous contamination. BRAIN: CSF spaces: Ventricles are normal in size and shape. Basal cisterns are patent. No extra-axial fluid collections. Brain: No significant abnormality of the brain can be seen. Skull and face: Calvarium and facial bones appear intact, without suspicious lesions. Orbits appear normal. Sinuses: Sinuses and mastoids are clear. HEAD CT ANGIOGRAPHY: Anterior circulation: Intracranial internal carotid arteries are normal in size and flow. There is a diminutive right A1 segment, with a corresponding robust left A1 segment. This is considered to be a normal developmental variant of the [place] of [place], of typically no clinical consequence. The flow within the paired anterior cerebral arteries is otherwise normal and symmetric. The flow within the middle cerebral arteries is normal and symmetric. The anterior communicating artery is seen. No aneurysms are seen. Posterior circulation: Visualized portions of the vertebral arteries demonstrate normal caliber, and join to form a normal appearing basilar artery. Flow within the posterior cerebral arteries is normal and symmetric. No aneurysms are seen. NECK CT ANGIOGRAPHY: Carotid system: The great vessels demonstrate a conventional anatomy as they arise from the aortic arch. The origins of the common carotid arteries appear patent. The common carotid arteries demonstrate normal caliber and courses. The bifurcation regions are both widely patent. The internal carotid arteries demonstrate normal calibers and courses. Posterior circulation: The origins of the vertebral arteries both appear widely patent. The more superior extracranial portions of both vertebral arteries also demonstrate normal courses and calibers. They join to form a normal appearing basilar artery. Soft tissues: Visualized neck soft tissues demonstrate no suspicious abnormalities. Bones: No suspicious bony lesions. Visualized cervical spine appears normally aligned. Degenerative changes of the cervical spine can be seen. IMPRESSION: No imaging explanation is found for this patient's presenting symptoms. No significant intracranial arterial abnormality is seen. No significant abnormality is seen within the arteries of the neck. Any quantitative measurements of stenosis were performed using NASCET criteria. Dictated by: Yomi Goodwin M.D. on 06/11/2024 at 17:44 Approved by: Yomi Goodwin M.D. on 06/11/2024 at 17:46
[2024-06-11 17:41] LABS: NT-proBNP (BNP-Adult 18+) 477 pg/mL (<450); Troponin I < 0.012 ng/mL (0.01-0.034)
[2024-06-11] MEDS: METOCLOPRAMIDE 10 MG/2 ML INJ IV (17:51)
[2024-06-11] MEDS: diphenhydrAMINE 50 MG/ML VIAL 25 MG IV (17:51)
--- NOTE | 2024-06-11 17:58 | ED.DIZZY ---
HPI - Dizziness General Chief Complaint: Dizziness Stated Complaint: Dizzyness, Nausea during visit Time Seen by Provider: 06/11/24 17:58 Source: patient Mode of arrival: Wheelchair History of Present Illness HPI Narrative: 84-year-old female reports chronic dizziness for at least the last year, intermittent dizziness for many years, with spinning sensation, worse with head and/or body movements, had outpatient scheduled echocardiogram today 3:00 p.m., then after the procedure seemed to have increased dizziness and spinning sensation. No stress testing was associated with a echocardiogram. No associated diaphoresis or syncope or presyncope, no associated weakness to face arm or leg. [place] typical of her previous dizziness but seemed to be increased for some recent after her echocardiogram. No fall injury or trauma. No fevers or chills. No change in her oral intake. No diarrhea. No black or red stools. Denies frequency of urination or painful urination. No change in chronic medications. Related Data Previous Rx's Medication Instructions Recorded acetaminophen 325 mg tablet 650 mg (2 x 325 mg) PO TID #60 tabs 01/07/21 aspirin 81 mg tablet,delayed 81 mg PO BID #60 tabs 01/07/21 release ibuprofen 400 mg tablet 400 mg PO Q4HR #90 tabs 01/07/21 tramadol 50 mg tablet 50 mg PO Q6H PRN pain #30 tabs 01/07/21 Allergies Allergy/AdvReac Type Severity Reaction Status Date / Time Penicillins Allergy Mild Rash Verified 01/06/21 10:32 Review of Systems Review of Systems Narrative: see HPI Patient History Medical History Arthritis Bilateral leg cramps Diabetes Hearing impaired Osteoarthritis Surgical History History of bilateral tubal ligation (1974) History of hysterectomy Hx of appendectomy Hx of bilateral cataract extraction Social History household members: none Smoking Status: Never smoker alcohol intake: never Smoking Status: Never smoker Substance Use Type: does not use Exam Narrative Exam Narrative: GENERAL: Well-developed patient, in mild distress. HEAD: Atraumatic. Normocephalic. EYES: Pupils equal round and reactive. Extraocular motions intact. No scleral icterus. No injection or drainage. ENT: Nose without bleeding, purulent drainage. Throat without erythema, tonsillar hypertrophy or exudate. Airway patent. NECK: Trachea midline. Non tender CARDIOVASCULAR: Regular rate and rhythm without murmurs, gallops, or rubs. RESPIRATORY: Clear to auscultation. Breath sounds equal bilaterally. No wheezes, rales, or rhonchi. GASTROINTESTINAL: Abdomen soft, non-tender, nondistended. EXTREMITIES: No edema or joint tenderness. BACK: Nontender without deformity or crepitance. No flank tenderness. NEURO: AOx3. Motor 5/5 upper extremities. Motor 5/5 lower extremities. Cranial nerves intact. [id number]-[id number] testing normal. SKIN: No rash or erythema of visible areas Initial Vital Signs Initial Vital Signs: Vital Signs Temperature 97.9 F 06/11/24 16:35 Pulse Rate 60 06/11/24 16:35 Respiratory Rate 18 06/11/24 16:35 Blood Pressure 227/91 H 06/11/24 16:35 Pulse Oximetry 99 06/11/24 16:35 Oxygen Delivery Method Room Air 06/11/24 16:35 Course Orders Ordered: ED Orders 06/11/24 16:43 XR chest 1V Stat EKG-12 Lead Stat 06/11/24 17:00 Complete Blood Count AUTO DIFF Stat Comprehensive Metabolic Panel Stat Lipase Stat Magnesium Stat NT-proBNP (BNP-Adult 18+) Stat PTT Partial Thromboplastin Floyd Stat Prothrombin Time INR Stat Troponin & CK Cardiac Panel Stat 06/11/24 17:39 CT head/brain wo con Stat 06/11/24 17:40 CT angio head and neck Stat 06/11/24 20:03 Trop I [Troponin I] Stat Discontinued Medications Amlodipine Besylate (Amlodipine 5 Mg Tablet) 2.5 mg PO NOW ONE Stop: 06/11/24 20:49 Last Admin: 06/11/24 20:55 Dose: 2.5 mg Documented By: Diphenhydramine HCl (Diphenhydramine 50 Mg/Ml Vial) 25 mg IV NOW ONE Stop: 06/11/24 17:40 Last Admin: 06/11/24 17:51 Dose: 25 mg Documented By: EDIL Sodium Chloride (Normal Saline 0.9%) 1,000 mls @ 500 mls/hr IV BOLUS ONE Stop: 06/11/24 21:26 Last Infusion: 06/11/24 20:33 Dose: Infused Documented By: Admin: 06/11/24 19:39 Dose: 500 mls/hr Documented By: Sodium Chloride (Normal Saline 0.9%) 1,000 mls @ 1,000 mls/hr IV BOLUS ONE Stop: 06/11/24 21:04 Last Admin: 06/11/24 20:43 Dose: Not Given Documented By: Meclizine HCl (Meclizine Hcl 12.5 Mg Tablet) 25 mg PO NOW ONE Stop: 06/11/24 19:28 Last Admin: 06/11/24 19:39 Dose: 25 mg Documented By: Metoclopramide HCl (Metoclopramide 10 Mg/2 Ml Inj) 10 mg IV NOW ONE Stop: 06/11/24 17:40 Last Admin: 06/11/24 17:51 Dose: 10 mg Documented By: EDIL Vital Signs Vital signs: Vital Signs - 8 hr 06/11/24 17:30 06/11/24 17:31 06/11/24 17:31 Temperature Pulse Rate 62 61 Respiratory Rate 32 H 27 H Blood Pressure 215/96 H Pulse Oximetry 94 98 Oxygen Delivery Method 06/11/24 18:06 06/11/24 18:16 06/11/24 18:16 Temperature Pulse Rate 69 71 Respiratory Rate 16 14 Blood Pressure 209/84 H Pulse Oximetry 93 99 Oxygen Delivery Method Room Air 06/11/24 18:30 06/11/24 18:30 06/11/24 19:00 Temperature Pulse Rate 73 72 Respiratory Rate 13 15 Blood Pressure 198/80 H Pulse Oximetry 98 96 Oxygen Delivery Method Room Air 06/11/24 19:01 06/11/24 19:01 06/11/24 19:30 Temperature Pulse Rate 71 67 Respiratory Rate 14 13 Blood Pressure 206/81 H Pulse Oximetry 98 95 Oxygen Delivery Method Room Air 06/11/24 19:31 06/11/24 19:31 06/11/24 20:00 Temperature Pulse Rate 66 Respiratory Rate 13 Blood Pressure 189/79 H 202/85 H Pulse Oximetry 96 Oxygen Delivery Method 06/11/24 20:00 06/11/24 20:24 06/11/24 20:24 Temperature Pulse Rate 63 61 Respiratory Rate 21 13 Blood Pressure 184/77 H Pulse Oximetry 98 98 Oxygen Delivery Method Room Air 06/11/24 20:30 06/11/24 20:31 06/11/24 20:31 Temperature Pulse Rate 63 64 Respiratory Rate 14 14 Blood Pressure 203/81 H Pulse Oximetry 97 97 Oxygen Delivery Method 06/11/24 22:10 06/11/24 22:44 Temperature 98.2 F Pulse Rate 85 85 Respiratory Rate 18 18 Blood Pressure 198/97 H 198/87 H Pulse Oximetry 98 98 Oxygen Delivery Method Room Air Room Air MDM - Dizziness Lab Data Attestation: I reviewed the patient's lab results. 06/11/24 17:00 06/11/24 17:00 Labs: Lab Results 06/11/24 06/11/24 Range/Units 17:00 20:03 WBC 5.3 (4.5-11.0) X10^3/uL RBC 4.21 (4.0-5.2) X10^6/uL Hgb 11.8 L (12.0-16.0) g/dL Hct 35.6 L (36-46) % MCV 84.6 (80-100) fL MCH 27.9 (26-34) PG MCHC 33.0 (30-36) % RDW 13.7 (11.6-14.8) % Plt Count 264 (150-400) X10^3/uL Neut % (Auto) 62.3 (50-75) % Lymph % (Auto) 26.0 (25-40) % [place] % (Auto) 9.2 (3-14) % Eos % (Auto) 1.8 L (2-4) % Baso % (Auto) 0.7 (0-2) % Neut # (Auto) 3300 (4959-4128) /uL Lymph # (Auto) 1400 (9265-1662) /uL [place] # (Auto) 500 (0-900) /uL Eos # (Auto) 100 (0-450) /uL Baso # (Auto) 0 (0-100) /uL PT 10.6 (9.4-12.5) SECONDS INR 0.9 (0.9-1.3) APTT 39 H (25.1-36.5) SECONDS Sodium 133 L (137-145) mmol/L Potassium 3.7 (3.4-5.1) mmol/L Chloride 96 L (98-107) mmol/L Carbon Dioxide 31 (22-32) mmol/L BUN 18 H (7-17) mg/dL Creatinine 0.81 (0.52-1.04) mg/dL Estimated GFR > 60 (>60) mL/min BUN/Creatinine Ratio 22.2 H (6-22) Glucose 134 H (80-110) mg/dL Calcium 9.0 (8.4-10.2) mg/dL Magnesium 1.9 (1.6-2.3) mg/dL Total Bilirubin 0.5 (0.2-1.3) mg/dL AST 30 (14-36) IU/L ALT 9 (<35) IU/L Alkaline Phosphatase 94 (38-126) U/L Total Creatine Kinase 138 H (30-135) U/L Troponin I < 0.012 < 0.012 (0.01-0.034) ng/mL NT-Pro-B Natriuret Pep 477 H (<450) pg/mL Total Protein 7.4 (6.3-8.2) g/dL Albumin 4.2 (3.5-5.0) g/dL Globulin 3.2 (1.7-4.1) g/dL Albumin/Globulin Ratio 1.3 (1.0-2.8) Lipase 50 (23-300) U/L Imaging Data Chest x-ray: Radiologist's Impression: [place] [address] XRay Report Signed Patient: Zaki Mckee MR#: [id number] : 1940 Acct:[id number] Age/Sex: 84 / F Date of Service: 06/11/24 Loc: ED Accession Number: [id number] Procedure: XR chest 1V Ordering Provider: Ammon King D.O. PROCEDURE: XR CHEST 1V INDICATIONS: chest pain TECHNIQUE: One view of the chest was acquired. COMPARISON: None. FINDINGS: Surgical changes and devices: None. Lungs and pleura: Lungs are clear. No pleural effusions or pneumothorax. Mediastinum: Mediastinal contours appear normal. Heart size is prominent. Bones and chest wall: No suspicious bony lesions. Overlying soft tissues appear unremarkable. IMPRESSION: No acute cardiopulmonary abnormality is seen. Dictated by: Reji Antonio M.D. on 06/11/2024 at 17:12 Approved by: Reji Antonio M.D. on 06/11/2024 at 17:13 CT scan - head: Radiologist's Impression: [address] [address] [address] Scan Report Signed Patient: Zaki Mckee MR#: [id number] : 1940 Acct:[id number] Age/Sex: 84 / F Date of Service: 06/11/24 Loc: ED Accession Number: [id number] Procedure: CT head/brain wo con Ordering Provider: Ammon King D.O. PROCEDURE: CT HEAD/BRAIN WO CON INDICATIONS: dizziness, nausea, HTN TECHNIQUE: Noncontrast 4.5 mm thick angled axial sections acquired from the foramen magnum to the vertex, with coronal and sagittal reformats. For radiation dose reduction, the following was used: automated exposure control, adjustment of mA and/or kV according to patient size. COMPARISON: None. FINDINGS: Image quality: Motion degraded CSF spaces: Basal cisterns are patent. No extra-axial fluid collections. The ventricles are symmetric in size and shape. Brain: No intracranial bleeds or masses. There is cerebral volume loss for age, with resultant ventricular and sulcal prominence. There are periventricular and deep white matter chronic small vessel ischemic changes. There is intracranial internal carotid artery atherosclerosis. Skull and face: Calvarium and visualized facial bones appear intact, without suspicious lesions. Sinuses: Visualized sinuses and mastoids are clear. IMPRESSION: Motion degraded exam. No definite acute intracranial pathology. Dictated by: Reji Antonio M.D. on 06/11/2024 at 18:26 Approved by: Reji Antonio M.D. on 06/11/2024 at 18:27 CTA - brain/neck: Radiologist's Impression: [address] [address] [address] Scan Report Signed Patient: Zaki Mckee MR#: [id number] : 1940 Acct:[id number] Age/Sex: 84 / F Date of Service: 06/11/24 Loc: ED Accession Number: [id number] Procedure: CT angio head and neck Ordering Provider: Ammon King D.O. PROCEDURE: CT ANGIO HEAD AND NECK INDICATIONS: dizziness, headache, nausea TECHNIQUE: After the administration of intravenous contrast, 1 mm thick sections acquired from the aortic arch through the [place]. 3-dimensional agbvsoh-ztlowgdrq-nbgtcdxrec (MIP) and/or volume rendering reformats were acquired of the central intracranial vasculature and neck separately. For radiation dose reduction, the following was used: automated exposure control, adjustment of mA and/or kV according to patient size. COMPARISON: [facility], CT, CT HEAD/BRAIN WO CON, 06/11/2024, 17:52. FINDINGS: Image quality: Limited by bolus timing, with venous contamination. BRAIN: CSF spaces: Ventricles are normal in size and shape. Basal cisterns are patent. No extra-axial fluid collections. Brain: No significant abnormality of the brain can be seen. Skull and face: Calvarium and facial bones appear intact, without suspicious lesions. Orbits appear normal. Sinuses: Sinuses and mastoids are clear. HEAD CT ANGIOGRAPHY: Anterior circulation: Intracranial internal carotid arteries are normal in size and flow. There is a diminutive right A1 segment, with a corresponding robust left A1 segment. This is considered to be a normal developmental variant of the [place], of typically no clinical consequence. The flow within the paired anterior cerebral arteries is otherwise normal and symmetric. The flow within the middle cerebral arteries is normal and symmetric. The anterior communicating artery is seen. No aneurysms are seen. Posterior circulation: Visualized portions of the vertebral arteries demonstrate normal caliber, and join to form a normal appearing basilar artery. Flow within the posterior cerebral arteries is normal and symmetric. No aneurysms are seen. NECK CT ANGIOGRAPHY: Carotid system: The great vessels demonstrate a conventional anatomy as they arise from the aortic arch. The origins of the common carotid arteries appear patent. The common carotid arteries demonstrate normal caliber and courses. The bifurcation regions are both widely patent. The internal carotid arteries demonstrate normal calibers and courses. Posterior circulation: The origins of the vertebral arteries both appear widely patent. The more superior extracranial portions of both vertebral arteries also demonstrate normal courses and calibers. They join to form a normal appearing basilar artery. Soft tissues: Visualized neck soft tissues demonstrate no suspicious abnormalities. Bones: No suspicious bony lesions. Visualized cervical spine appears normally aligned. Degenerative changes of the cervical spine can be seen. IMPRESSION: No imaging explanation is found for this patient's presenting symptoms. No significant intracranial arterial abnormality is seen. No significant abnormality is seen within the arteries of the neck. Any quantitative measurements of stenosis were performed using NASCET criteria. Dictated by: Yomi Goodwin M.D. on 06/11/2024 at 17:44 Approved by: Yomi Goodwin M.D. on 06/11/2024 at 17:46 ECG Data Attestation: I personally reviewed and interpreted this ECG as follows: Interpretation: Sinus bradycardia with rate of 59. No obvious ST segment elevation or depression changes. DC 180, QRS 102, QTC 453. MDM Narrative Medical decision making narrative: 84-year-old female with chronic vertigo for least the last year, had outpatient echocardiogram 3:00 p.m. today, no stress test component, afterwards seemed to have increased vertigo symptoms, not associated with chest pain, no focal weakness, has been able to ambulate. After triage previous provider had ordered CT scanning of the head noncontrast, with CTA studies head and neck vessels. Those are pending. Screening EKG showed normal sinus rhythm. Screening labs sent. Screening labs unremarkable, initial troponin negative. CT head negative. CT head and neck vessels negative. See radiology reports. Case discussed with Dr. Lemus, we could not locate echocardiogram reading, he will look up the study and call back. Case discussed with Dr. Lemus, study was not read yet as it was submitted late, not yet officially read. He called back after he reviewed echocardiogram from home, he will do formal dictation tomorrow, but reports hyperdynamic LV, suspects dehydration, no aortic stenosis, LV function grossly normal, no pericardial effusion changes, no tamponade physiology.. If clinically not fluid overloaded he suggests IV fluid bolus. IV fluids additional bolus given. We will then attempt ambulation trial and oral fluids Patient felt better, was able to ambulate without difficulty. Patient advised to follow up with your regular doctor. Continue taking same chronic medication regimen. Follow up with ordering provider for echocardiogram results and subsequent actions if any. Return precautions discussed Discharge Plan Departure Patient Disposition: Home Clinical Impression: Dizziness, Hypertension, Dehydration Activity Restrictions/Additional Instructions: History of reported chronic dizziness or at least this last year, outpatient elective echocardiogram done this afternoon 3:00 p.m., afterwards you seemed to have increased vertigo dizziness, similar in quality but more intense. CT scan head showed no acute changes. CT angiogram of the head and neck vessels showed no abnormalities. Phone call to Cardiology for reading of your elective echocardiogram, in formal reading showed hyperdynamic left ventricle, suspicious for dehydration low volume state, otherwise no significant abnormalities, although formal cardiology/radiology reading and report is still to follow. IV fluids given. Symptoms improved. You were able to walk around the department well. Initial elevated blood pressures improved. Take your chronic medications as directed. EKG and serial blood tests did not show evidence of heart attack at this time. Electrolytes unremarkable. Unremarkable neurological exam. Recheck symptoms with your regular doctor in the next couple of days, and to review the results of the formal echocardiogram report. Return to this/nearest emergency department for any change worsening symptoms or any concerns prior Prescriptions: No Action acetaminophen 325 mg Tablet 650 mg PO TID Qty: 60 0RF aspirin 81 mg Tablet,Delayed Release (Dr/Ec) 81 mg PO BID Qty: 60 0RF ibuprofen 400 mg Tablet 400 mg PO Q4HR Qty: 90 0RF tramadol 50 mg tablet 50 mg PO Q6H PRN (Reason: pain) Qty: 30 0RF Referrals: Kacey Talbot MD [Primary Care Provider] - Stand Alone Forms: Patient Portal/API
--- NOTE | 2024-06-11 19:30 | PC.NURSE ---
Pt up ambulatory to BR. Requiring one person assist to and from BR.
[2024-06-11] MEDS: MECLIZINE HCL 12.5 MG TABLET 25 MG PO (19:39)
[2024-06-11] MEDS: SODIUM CHLORIDE 0.9% 1,000 ML 500 ML IV (19:39)
--- NOTE | 2024-06-11 20:07 | PC.NURSE ---
Pt taking PO well. Pt is unsteady on feet, needing one person assist to ambulate.
[2024-06-11 20:29] LABS: Troponin I < 0.012 ng/mL (0.01-0.034)
--- NOTE | 2024-06-11 20:40 | PC.NURSE ---
Pt up to hallway. Ambulating with SBA. Steady gait noted. SBP remains >200. Dr Julien notified.
[2024-06-11] MEDS: AMLODIPINE 5 MG TABLET 2.5 MG PO (20:55)
== END 2024-06-11 22:46 | disposition home or self-care (01) ==
PROVIDERS: Student in an Organized Health Care Education/Training Program; Emergency Provider Emergency Medicine; PCP Internal Medicine
DX: R42 Dizziness and giddiness (principal); I10 Essential (primary) hypertension; R07.9 Chest pain, unspecified; E86.0 Dehydration; I08.1 Rheumatic disorders of both mitral and tricuspid valves; R01.1 Cardiac murmur, unspecified
CPT/HCPCS: 36415; 70450; 70496; 70498; 71045; 80053; 82550; 83690; 83735; 83880; 84484; 85025; 85610; 85730; 93005; 93010; 93306; 96361; 96374; 96375; 99284; J1200; J2765; Q9967

== ENCOUNTER 2024-09-04 12:25 | Inpatient (IN) | payer MEDICARE, OTHER, SELFPAY ==
[2021-01-06 18:02] VITALS: BMI 29.7
[2024-09-04] VITALS (40 sets, daily range): BP systolic 150–250; BP diastolic 64–111; PULSE 62–97; RESP 12–39; TEMP 37.2; O2SAT 88–98; BMI 30.3
--- NOTE | 2024-09-04 12:33 | DI.RAD.S_ITS ---
PROCEDURE: XR CHEST 1V INDICATIONS: Shortness of breath TECHNIQUE: One view of the chest was acquired. COMPARISON: [facility], CR, XR CHEST 1V, 06/11/2024, 16:58. FINDINGS: Surgical changes and devices: None. Lungs and pleura: Lungs are clear. No pleural effusions or pneumothorax. Mediastinum: Mediastinal contours appear normal. Heart size is enlarged. Bones and chest wall: No suspicious bony lesions. Overlying soft tissues appear unremarkable. IMPRESSION: No acute pulmonary process. Dictated by: Mandy Rosa M.D. on 09/04/2024 at 13:27 Approved by: Mandy Rosa M.D. on 09/04/2024 at 13:27
--- NOTE | 2024-09-04 12:45 | EKG_ITS ---
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
[2024-09-04] MEDS: ALBUTEROL 2.5 MG/3 ML NEB (ADULT) INH ×2 (13:05→23:29)
--- NOTE | 2024-09-04 13:11 | PC.NURSE ---
Patient here in department for wheezing and cough that started yesterday, patient just got back from a cruise to [place]. Patient states that they have green sputum production and denies other symptoms. Patient is very hypertensive in triage, 250's systolic, provider at bedside and is aware. patient febrile at 99.5, and tachypneic, with wheezes in both lungs, breathing treatment started.
--- NOTE | 2024-09-04 13:11 | ED.SOB ---
HPI - SOB/Dyspnea <Darien Hsieh MD - Last Filed: 09/05/24 09:00> General Chief Complaint: Shortness of Breath/Dyspnea Stated Complaint: Cough, SoB Time Seen by Provider: 09/04/24 12:45 Source: patient Mode of arrival: Family Vehicle Limitations: no limitations History of Present Illness HPI Narrative: Patient denies any history of heart attack strokes or diabetes. No lung disease no heart disease or congestive heart failure. Patient became short of breath with coughing in the past 24 hours. Just returned from the [employer]. Unknown sick contacts. Vital signs noted. She did take her blood pressure medication today. Respiratory therapy at bedside to give albuterol nebulizer. Patient has auditory wheezing and wet cough. Patient denies any chest pain. Does admit to bilateral leg swelling. No history of blood clots in legs or lungs. Related Data Home Medications Medication Instructions Recorded Confirmed telmisartan 40 mg tablet 40 mg PO DAILY BP 09/05/24 09/05/24 Allergies Allergy/AdvReac Type Severity Reaction Status Date / Time Penicillins Allergy Mild Rash Verified 09/04/24 12:51 Review of Systems <Darien Hsieh MD - Last Filed: 09/05/24 09:00> Review of Systems Narrative: GENERAL: Negative chills, fatigue, malaise, fever, sweats. HEENT: Negative sinus pain, ear pain, sore throat RESPIRATORY: Positive dyspnea, cough CARDIOVASCULAR: Negative chest pain, palpitations, positive extremity edema GASTROINTESTINAL: Negative nausea, vomiting, abdominal pain : Negative dysuria, frequency, hematuria MUSCULOSKELETAL: Negative muscle or bony pain SKIN: Negative rash, skin lesions NEUROLOGIC: Negative weakness, numbness ROS Unobtainable: All systems reviewed & are unremarkable except as noted in HPI and below Patient History <Darien Hsieh MD - Last Filed: 09/05/24 09:00> Medical History Pulmonary HTN Bilateral edema of lower extremity Arthritis Osteoarthritis Diabetes Hearing impaired Bilateral leg cramps Surgical History History of bilateral tubal ligation (1974) History of hysterectomy Hx of appendectomy Hx of bilateral cataract extraction Social History household members: none Smoking Status: Never smoker alcohol intake: never Smoking Status: Never smoker Exam <Darien Hsieh MD - Last Filed: 09/05/24 09:00> Narrative Exam Narrative: GENERAL: in no distress, not toxic not dyspneic HEAD: Normocephalic. EYES: Pupils equal round ENT: Mucous membranes moist. NECK: Trachea midline. CARDIOVASCULAR: Regular rate and rhythm RESPIRATORY: Patient is speaking near full sentences but mildly dyspneic. Very coarse lung sounds with wheezing and rhonchi. Bilaterally. GASTROINTESTINAL: Abdomen soft, non-tender EXTREMITIES: No gross deformities. 1+ bilateral ankle edema. BACK: No flank tenderness. NEURO: AOx4. SKIN: Warm and dry PSYCH: Not anxious, is cooperative Initial Vital Signs Initial Vital Signs: Vital Signs Temperature 99.0 F 09/04/24 12:47 Pulse Rate 90 09/04/24 12:47 Respiratory Rate 34 H 09/04/24 12:47 Blood Pressure 250/111 H 09/04/24 12:47 Pulse Oximetry 88 L 09/04/24 12:47 Oxygen Delivery Method Room Air 09/04/24 12:47 <Emily Mchugh MD - Last Filed: 09/05/24 00:02> Initial Vital Signs Initial Vital Signs: Vital Signs Temperature 99.0 F 09/04/24 12:47 Pulse Rate 90 09/04/24 12:47 Respiratory Rate 34 H 09/04/24 12:47 Blood Pressure 250/111 H 09/04/24 12:47 Pulse Oximetry 88 L 09/04/24 12:47 Oxygen Delivery Method Room Air 09/04/24 12:47 Course <Darien Hsieh MD - Last Filed: 09/05/24 09:00> Orders Ordered: Acetaminophen (Acetaminophen 325 Mg Tablet) 650 mg PO Q6H PRN PRN Reason: fever mild pain Al Hydrox/Mg Hydrox/Simethicone (Mag Hydrox/Alum/Simeth 30 Ml Udc) 30 ml PO Q6HR PRN PRN Reason: Dyspepsia Albuterol (Albuterol 2.5 Mg/3 Ml Neb (Adult)) 2.5 mg INH [id number] PRN PRN Reason: Shortness Of Breath Last Admin: 09/04/24 23:29 Dose: 2.5 mg Documented By: PV Aspirin (Aspirin Ec 81 Mg Tablet) 81 mg PO DAILY [facility] Last Admin: 09/05/24 08:35 Dose: 81 mg Documented By: CORINNA Enoxaparin Sodium (Enoxaparin 40 Mg/0.4 Ml Syringe) 40 mg SUBCUT DAILY [facility] Last Admin: 09/05/24 08:36 Dose: 40 mg Documented By: CORINNA Influenza Virus Vaccine (Influenza Hd Vaccine 0.5 Ml Syringe) 0.5 ml IM .ONCE ONE Stop: 09/05/24 12:01 Losartan Potassium (Losartan 50 Mg Tablet) 50 mg PO DAILY [facility] Last Admin: 09/05/24 08:35 Dose: 50 mg Documented By: CORINNA Naloxone HCl (Naloxone 0.4 Mg/Ml Vial) 0.2 mg IV Q2MIN PRN PRN Reason: Opiate Reversal Ondansetron HCl (Ondansetron 4 Mg/2 Ml Inj) 4 mg IV Q8HR PRN PRN Reason: Nausea And Vomiting Tramadol HCl (Tramadol 50 Mg Tablet) 50 mg PO Q6H PRN PRN Reason: pain hold if drowsy Discontinued Medications Acetaminophen (Acetaminophen 325 Mg Tablet) 975 mg PO NOW ONE Stop: 09/04/24 13:13 Last Admin: 09/04/24 13:47 Dose: 975 mg Documented By: FAWN Albuterol (Albuterol 2.5 Mg/3 Ml Neb (Adult)) 2.5 mg INH NOW ONE Stop: 09/04/24 13:02 Last Admin: 09/04/24 13:05 Dose: 2.5 mg Documented By: JOSÉ MIGUEL Hydralazine HCl (Hydralazine 20 Mg/Ml Vial) 10 mg IV NOW ONE Stop: 09/04/24 13:13 Last Admin: 09/04/24 13:49 Dose: 10 mg Documented By: FAWN Methylprednisolone (Methylprednisolone 125 Mg/2 Ml Vial) 125 mg IV NOW ONE Stop: 09/04/24 13:11 Last Admin: 09/04/24 13:49 Dose: 125 mg Documented By: FAWN Methylprednisolone (Methylprednisolone 125 Mg/2 Ml Vial) 60 mg IV NOW ONE Stop: 09/05/24 04:44 Last Admin: 09/05/24 04:52 Dose: 60 mg Documented By: BRANDON Non-Formulary Medication (Telmisartan) 40 mg PO DAILY [facility] Vital Signs Vital signs: Vital Signs - 8 hr 09/04/24 16:15 09/04/24 16:15 09/04/24 16:30 Pulse Rate 86 Respiratory Rate 30 H Blood Pressure 161/70 H 167/71 H Pulse Oximetry 93 Oxygen Delivery Method Room Air Oxygen Flow Rate 09/04/24 16:30 09/04/24 16:45 09/04/24 16:45 Pulse Rate 84 83 Respiratory Rate 39 H 34 H Blood Pressure 158/68 H Pulse Oximetry 94 93 Oxygen Delivery Method Nasal Cannula Oxygen Flow Rate 2 09/04/24 17:00 09/04/24 17:00 09/04/24 17:15 Pulse Rate 86 82 Respiratory Rate 28 H Blood Pressure 176/76 H Pulse Oximetry 94 93 Oxygen Delivery Method Nasal Cannula Oxygen Flow Rate 2 09/04/24 17:15 09/04/24 17:30 09/04/24 17:30 Pulse Rate 82 Respiratory Rate 31 H Blood Pressure 156/69 H 158/71 H Pulse Oximetry 97 Oxygen Delivery Method Nasal Cannula Oxygen Flow Rate 2 09/04/24 17:45 09/04/24 17:45 09/04/24 18:00 Pulse Rate 83 Respiratory Rate 31 H Blood Pressure 175/77 H 182/74 H Pulse Oximetry 97 Oxygen Delivery Method Nasal Cannula Oxygen Flow Rate 2 09/04/24 18:00 09/04/24 20:33 09/04/24 21:00 Pulse Rate 82 75 74 Respiratory Rate 27 H 18 Blood Pressure Pulse Oximetry 97 98 97 Oxygen Delivery Method Oxygen Flow Rate 09/04/24 21:01 09/04/24 21:01 09/04/24 21:15 Pulse Rate 74 73 Respiratory Rate 15 15 Blood Pressure 214/90 H Pulse Oximetry 97 97 Oxygen Delivery Method Oxygen Flow Rate 09/04/24 21:15 09/04/24 21:30 09/04/24 21:30 Pulse Rate 66 Respiratory Rate 14 Blood Pressure 197/84 H 184/72 H Pulse Oximetry 97 Oxygen Delivery Method Nasal Cannula Oxygen Flow Rate 2 09/04/24 21:45 09/04/24 21:45 09/04/24 22:00 Pulse Rate 66 70 Respiratory Rate 13 13 Blood Pressure 162/72 H Pulse Oximetry 97 97 Oxygen Delivery Method Nasal Cannula Oxygen Flow Rate 2 09/04/24 22:00 09/04/24 22:15 09/04/24 22:15 Pulse Rate 64 Respiratory Rate 12 Blood Pressure 150/68 H 201/84 H Pulse Oximetry 98 Oxygen Delivery Method Nasal Cannula Oxygen Flow Rate 2 09/04/24 22:30 09/04/24 22:30 09/04/24 23:00 Pulse Rate 71 62 Respiratory Rate 17 14 Blood Pressure 198/85 H Pulse Oximetry 96 98 Oxygen Delivery Method Nasal Cannula Nasal Cannula Oxygen Flow Rate 2 2 09/04/24 23:01 09/04/24 23:01 Pulse Rate 62 Respiratory Rate 13 Blood Pressure 177/74 H Pulse Oximetry 98 Oxygen Delivery Method Nasal Cannula Oxygen Flow Rate 2 <Emily Mchugh MD - Last Filed: 09/05/24 00:02> Orders Ordered: Acetaminophen (Acetaminophen 325 Mg Tablet) 650 mg PO Q6H PRN PRN Reason: fever mild pain Al Hydrox/Mg Hydrox/Simethicone (Mag Hydrox/Alum/Simeth 30 Ml Udc) 30 ml PO Q6HR PRN PRN Reason: Dyspepsia Albuterol (Albuterol 2.5 Mg/3 Ml Neb (Adult)) 2.5 mg INH [id number] PRN PRN Reason: Shortness Of Breath Last Admin: 09/04/24 23:29 Dose: 2.5 mg Documented By: DONY Aspirin (Aspirin Ec 81 Mg Tablet) 81 mg PO DAILY [facility] Last Admin: 09/05/24 08:35 Dose: 81 mg Documented By: CORINNA Enoxaparin Sodium (Enoxaparin 40 Mg/0.4 Ml Syringe) 40 mg SUBCUT DAILY [facility] Last Admin: 09/05/24 08:36 Dose: 40 mg Documented By: CORINNA Influenza Virus Vaccine (Influenza Hd Vaccine 0.5 Ml Syringe) 0.5 ml IM .ONCE ONE Stop: 09/05/24 12:01 Losartan Potassium (Losartan 50 Mg Tablet) 50 mg PO DAILY [facility] Last Admin: 09/05/24 08:35 Dose: 50 mg Documented By: CORINNA Naloxone HCl (Naloxone 0.4 Mg/Ml Vial) 0.2 mg IV Q2MIN PRN PRN Reason: Opiate Reversal Ondansetron HCl (Ondansetron 4 Mg/2 Ml Inj) 4 mg IV Q8HR PRN PRN Reason: Nausea And Vomiting Tramadol HCl (Tramadol 50 Mg Tablet) 50 mg PO Q6H PRN PRN Reason: pain hold if drowsy Discontinued Medications Acetaminophen (Acetaminophen 325 Mg Tablet) 975 mg PO NOW ONE Stop: 09/04/24 13:13 Last Admin: 09/04/24 13:47 Dose: 975 mg Documented By: FAWN Albuterol (Albuterol 2.5 Mg/3 Ml Neb (Adult)) 2.5 mg INH NOW ONE Stop: 09/04/24 13:02 Last Admin: 09/04/24 13:05 Dose: 2.5 mg Documented By: JOSÉ MIGUEL Hydralazine HCl (Hydralazine 20 Mg/Ml Vial) 10 mg IV NOW ONE Stop: 09/04/24 13:13 Last Admin: 09/04/24 13:49 Dose: 10 mg Documented By: FAWN Methylprednisolone (Methylprednisolone 125 Mg/2 Ml Vial) 125 mg IV NOW ONE Stop: 09/04/24 13:11 Last Admin: 09/04/24 13:49 Dose: 125 mg Documented By: FAWN Methylprednisolone (Methylprednisolone 125 Mg/2 Ml Vial) 60 mg IV NOW ONE Stop: 09/05/24 04:44 Last Admin: 09/05/24 04:52 Dose: 60 mg Documented By: BRANDON Non-Formulary Medication (Telmisartan) 40 mg PO DAILY [facility] Vital Signs Vital signs: Vital Signs - 8 hr 09/04/24 16:15 09/04/24 16:15 09/04/24 16:30 Pulse Rate 86 Respiratory Rate 30 H Blood Pressure 161/70 H 167/71 H Pulse Oximetry 93 Oxygen Delivery Method Room Air Oxygen Flow Rate 09/04/24 16:30 09/04/24 16:45 09/04/24 16:45 Pulse Rate 84 83 Respiratory Rate 39 H 34 H Blood Pressure 158/68 H Pulse Oximetry 94 93 Oxygen Delivery Method Nasal Cannula Oxygen Flow Rate 2 09/04/24 17:00 09/04/24 17:00 09/04/24 17:15 Pulse Rate 86 82 Respiratory Rate 28 H Blood Pressure 176/76 H Pulse Oximetry 94 93 Oxygen Delivery Method Nasal Cannula Oxygen Flow Rate 2 09/04/24 17:15 09/04/24 17:30 09/04/24 17:30 Pulse Rate 82 Respiratory Rate 31 H Blood Pressure 156/69 H 158/71 H Pulse Oximetry 97 Oxygen Delivery Method Nasal Cannula Oxygen Flow Rate 2 09/04/24 17:45 09/04/24 17:45 09/04/24 18:00 Pulse Rate 83 Respiratory Rate 31 H Blood Pressure 175/77 H 182/74 H Pulse Oximetry 97 Oxygen Delivery Method Nasal Cannula Oxygen Flow Rate 2 09/04/24 18:00 09/04/24 20:33 09/04/24 21:00 Pulse Rate 82 75 74 Respiratory Rate 27 H 18 Blood Pressure Pulse Oximetry 97 98 97 Oxygen Delivery Method Oxygen Flow Rate 09/04/24 21:01 09/04/24 21:01 09/04/24 21:15 Pulse Rate 74 73 Respiratory Rate 15 15 Blood Pressure 214/90 H Pulse Oximetry 97 97 Oxygen Delivery Method Oxygen Flow Rate 09/04/24 21:15 09/04/24 21:30 09/04/24 21:30 Pulse Rate 66 Respiratory Rate 14 Blood Pressure 197/84 H 184/72 H Pulse Oximetry 97 Oxygen Delivery Method Nasal Cannula Oxygen Flow Rate 2 09/04/24 21:45 09/04/24 21:45 09/04/24 22:00 Pulse Rate 66 70 Respiratory Rate 13 13 Blood Pressure 162/72 H Pulse Oximetry 97 97 Oxygen Delivery Method Nasal Cannula Oxygen Flow Rate 2 09/04/24 22:00 09/04/24 22:15 09/04/24 22:15 Pulse Rate 64 Respiratory Rate 12 Blood Pressure 150/68 H 201/84 H Pulse Oximetry 98 Oxygen Delivery Method Nasal Cannula Oxygen Flow Rate 2 09/04/24 22:30 09/04/24 22:30 09/04/24 23:00 Pulse Rate 71 62 Respiratory Rate 17 14 Blood Pressure 198/85 H Pulse Oximetry 96 98 Oxygen Delivery Method Nasal Cannula Nasal Cannula Oxygen Flow Rate 2 2 09/04/24 23:01 09/04/24 23:01 Pulse Rate 62 Respiratory Rate 13 Blood Pressure 177/74 H Pulse Oximetry 98 Oxygen Delivery Method Nasal Cannula Oxygen Flow Rate 2 MDM - SOB/Dyspnea <Darien Hsieh MD - Last Filed: 09/05/24 09:00> Lab Data 09/05/24 06:00 09/05/24 06:00 Labs: Lab Results 09/04/24 09/04/24 Range/Units 12:55 14:37 WBC 7.6 (4.5-11.0) X10^3/uL RBC 4.57 (4.0-5.2) X10^6/uL Hgb 12.7 (12.0-16.0) g/dL Hct 39.1 (36-46) % MCV 85.7 (80-100) fL MCH 27.7 (26-34) PG MCHC 32.3 (30-36) % RDW 14.4 (11.6-14.8) % Plt Count 220 (150-400) X10^3/uL Neut % (Auto) 78.0 H (50-75) % Lymph % (Auto) 10.9 L (25-40) % [place] % (Auto) 10.0 (3-14) % Eos % (Auto) 0.6 L (2-4) % Baso % (Auto) 0.5 (0-2) % Neut # (Auto) 5900 (2562-8554) /uL Lymph # (Auto) 800 L (5388-5988) /uL [place] # (Auto) 800 (0-900) /uL Eos # (Auto) 0 (0-450) /uL Baso # (Auto) 0 (0-100) /uL PT 11.8 (9.4-12.5) SECONDS INR 1.0 (0.9-1.3) Sodium 135 L (137-145) mmol/L Potassium 3.7 (3.4-5.1) mmol/L Chloride 97 L (98-107) mmol/L Carbon Dioxide 31 (22-32) mmol/L BUN 17 (7-17) mg/dL Creatinine 0.92 (0.52-1.04) mg/dL Estimated GFR > 60 (>60) mL/min BUN/Creatinine Ratio 18.5 (6-22) Glucose 135 H (80-110) mg/dL Lactate 1.5 (0.7-2.1) mmol/L Calcium 9.1 (8.4-10.2) mg/dL Total Bilirubin 0.8 (0.2-1.3) mg/dL AST 39 H (14-36) IU/L ALT 14 (<35) IU/L Alkaline Phosphatase 86 (38-126) U/L Troponin I 0.022 (0.01-0.034) ng/mL NT-Pro-B Natriuret Pep 1780 H (<450) pg/mL Total Protein 8.0 (6.3-8.2) g/dL Albumin 4.5 (3.5-5.0) g/dL Globulin 3.5 (1.7-4.1) g/dL Albumin/Globulin Ratio 1.3 (1.0-2.8) Procalcitonin 0.060 (<0.5) ng/mL Chlamy pneumoniae PCR Not detected (Not Detect) Adenovirus (PCR) Not detected (Not Detect) B. pertussis DNA (PCR) Not detected (Not Detect) B.parapertussis DNA PCR Not detected (Not Detecte) Coronavirus OC43 (PCR) Not detected (Not Detect) Coronavirus HKU1 (PCR) Not detected (Not Detect) Coronavirus 229E (PCR) Not detected (Not Detect) SARS-CoV-2 (PCR) Negative Not detected (Negative) Coronavirus NL63 (PCR) Not detected (Not Detect) Human Metapneumovir PCR Not detected (Not Detect) Influenza A (RT-PCR) Flu a negative (NEGATIVE) Influenza Type A (PCR) Not detected (Not Detect) Influenza B (RT-PCR) Flu b negative (NEGATIVE) Influenza Type B (PCR) Not detected (Not Detect) M. pneumoniae (PCR) Not detected (Not Detect) Parainfluenza 1 (PCR) Not detected (Not Detect) Parainfluenza 2 (PCR) Not detected (Not Detect) Parainfluenza 3 (PCR) Not detected (Not Detect) Parainfluenza 4 (PCR) Detected H (Not Detect) RSV (PCR) Negative Not detected (Negative) Entero/Rhino (PCR) Not detected (Not Detect) Imaging Data Chest x-ray: Radiologist's Impression: [address] [address] XRay Report Signed Patient: Zaki Mckee MR#: [id number] : 1940 Acct:[id number] Age/Sex: 84 / F Date of Service: 09/04/24 Loc: ED Accession Number: [id number] Procedure: XR chest 1V Ordering Provider: Darien Hsieh MD PROCEDURE: XR CHEST 1V INDICATIONS: Shortness of breath TECHNIQUE: One view of the chest was acquired. COMPARISON: [facility], , XR CHEST 1V, 06/11/2024, 16:58. FINDINGS: Surgical changes and devices: None. Lungs and pleura: Lungs are clear. No pleural effusions or pneumothorax. Mediastinum: Mediastinal contours appear normal. Heart size is enlarged. Bones and chest wall: No suspicious bony lesions. Overlying soft tissues appear unremarkable. IMPRESSION: No acute pulmonary process. Dictated by: Mandy Rosa M.D. on 09/04/2024 at 13:27 Approved by: Mandy Rosa M.D. on 09/04/2024 at 13:27 US - DVT: Radiologist's Impression: [address] [address] Ultrasound Report Signed Patient: Zaki Mckee MR#: [id number] : 1940 Acct:[id number] Age/Sex: 84 / F Date of Service: 09/04/24 Loc: ED Accession Number: [id number] Procedure: US periph venous low extrem bi Ordering Provider: Darien Hsieh MD PROCEDURE: US PERIPH VENOUS LOW EXTREM BI INDICATIONS: Leg swelling, , shortness of breath TECHNIQUE: Real-time imaging, as well as color and pulse Doppler interrogation, were performed of the deep veins of both legs from the inguinal ligament to the popliteal fossa, with documentation of the visualized calf veins. COMPARISON: None. FINDINGS: Right: The common femoral, femoral, popliteal, and the visualized calf veins are normally compressible, and free of intraluminal thrombus. Color and pulse Doppler demonstrate normal phasic intravascular flow. There is normal augmentation response to distal compression maneuver. Left: The common femoral, femoral, popliteal, and the visualized calf veins are normally compressible, and free of intraluminal thrombus. Color and pulse Doppler demonstrate normal phasic intravascular flow. There is normal augmentation response to distal compression maneuver. IMPRESSION: No findings of deep venous thrombosis in either lower extremity. Dictated by: Yomi Goodwin M.D. on 09/04/2024 at 13:03 Approved by: Yomi Goodwin M.D. on 09/04/2024 at 13:03 [facility] Narrative Medical decision making narrative: Patient denies any history of heart attack strokes or diabetes. No lung disease no heart disease or congestive heart failure. Patient became short of breath with coughing in the past 24 hours. Just returned from the [employer]. Unknown sick contacts. Vital signs noted. She did take her blood pressure medication today. Respiratory therapy at bedside to give albuterol nebulizer. Patient has auditory wheezing and wet cough. Patient denies any chest pain. Does admit to bilateral leg swelling. No history of blood clots in legs or lungs. After history and exam CBC CMP blood culture lactic acid procalcitonin respiratory panel all respiratory therapy for treatment chest x-ray Solu-Medrol EKG [facility] Medical records reviewed: No recent visit for this complaint Differential considered: Includes but not limited to pneumonia COVID influenza rhino virus mycoplasma pneumonia CHF Lab Test results independently reviewed as above. Pertinent findings: WBC 7.6 hemoglobin 12.7 sodium 135 potassium 3.7 BNP 1780 troponin 0.022 Respiratory panel positive parainfluenza Independently reviewed EKG normal sinus rhythm rate 92 right bundle-branch block Imaging studies independently reviewed: Chest x-ray ultrasound legs no acute findings Consultations: 4:[address] Yeung contacted, who will call back. 5:[address] Yeung, would like CT chest PE protocol before admitting patient. Treatments: DuoNeb Solu-Medrol Tylenol hydralazine Re-evaluations: 3:31 p.m. per patient is feeling better however still has wheezing and rhonchi. Blood pressure has improved with hydralazine. at bedside. Agree for likely admission. Patient 94% room air but dyspneic and tachypneic when walking in the hallway. Discussion: Appropriate for admission for dyspnea supplemental oxygen echocardiogram continued breathing treatments. Diagnosis: Dyspnea 6:[address] Hsieh. Sign out to Dr. Mchugh. CT chest pending. Dr. Yeung will admit after results. <Emily Mchugh MD - Last Filed: 09/05/24 00:02> Lab Data Labs: Lab Results 09/04/24 09/04/24 Range/Units 12:55 14:37 WBC 7.6 (4.5-11.0) X10^3/uL RBC 4.57 (4.0-5.2) X10^6/uL Hgb 12.7 (12.0-16.0) g/dL Hct 39.1 (36-46) % MCV 85.7 (80-100) fL MCH 27.7 (26-34) PG MCHC 32.3 (30-36) % RDW 14.4 (11.6-14.8) % Plt Count 220 (150-400) X10^3/uL Neut % (Auto) 78.0 H (50-75) % Lymph % (Auto) 10.9 L (25-40) % [place] % (Auto) 10.0 (3-14) % Eos % (Auto) 0.6 L (2-4) % Baso % (Auto) 0.5 (0-2) % Neut # (Auto) 5900 (8681-1290) /uL Lymph # (Auto) 800 L (1978-8425) /uL [place] # (Auto) 800 (0-900) /uL Eos # (Auto) 0 (0-450) /uL Baso # (Auto) 0 (0-100) /uL PT 11.8 (9.4-12.5) SECONDS INR 1.0 (0.9-1.3) Sodium 135 L (137-145) mmol/L Potassium 3.7 (3.4-5.1) mmol/L Chloride 97 L (98-107) mmol/L Carbon Dioxide 31 (22-32) mmol/L BUN 17 (7-17) mg/dL Creatinine 0.92 (0.52-1.04) mg/dL Estimated GFR > 60 (>60) mL/min BUN/Creatinine Ratio 18.5 (6-22) Glucose 135 H (80-110) mg/dL Lactate 1.5 (0.7-2.1) mmol/L Calcium 9.1 (8.4-10.2) mg/dL Total Bilirubin 0.8 (0.2-1.3) mg/dL AST 39 H (14-36) IU/L ALT 14 (<35) IU/L Alkaline Phosphatase 86 (38-126) U/L Troponin I 0.022 (0.01-0.034) ng/mL NT-Pro-B Natriuret Pep 1780 H (<450) pg/mL Total Protein 8.0 (6.3-8.2) g/dL Albumin 4.5 (3.5-5.0) g/dL Globulin 3.5 (1.7-4.1) g/dL Albumin/Globulin Ratio 1.3 (1.0-2.8) Procalcitonin 0.060 (<0.5) ng/mL Chlamy pneumoniae PCR Not detected (Not Detect) Adenovirus (PCR) Not detected (Not Detect) B. pertussis DNA (PCR) Not detected (Not Detect) B.parapertussis DNA PCR Not detected (Not Detecte) Coronavirus OC43 (PCR) Not detected (Not Detect) Coronavirus HKU1 (PCR) Not detected (Not Detect) Coronavirus 229E (PCR) Not detected (Not Detect) SARS-CoV-2 (PCR) Negative Not detected (Negative) Coronavirus NL63 (PCR) Not detected (Not Detect) Human Metapneumovir PCR Not detected (Not Detect) Influenza A (RT-PCR) Flu a negative (NEGATIVE) Influenza Type A (PCR) Not detected (Not Detect) Influenza B (RT-PCR) Flu b negative (NEGATIVE) Influenza Type B (PCR) Not detected (Not Detect) M. pneumoniae (PCR) Not detected (Not Detect) Parainfluenza 1 (PCR) Not detected (Not Detect) Parainfluenza 2 (PCR) Not detected (Not Detect) Parainfluenza 3 (PCR) Not detected (Not Detect) Parainfluenza 4 (PCR) Detected H (Not Detect) RSV (PCR) Negative Not detected (Negative) Entero/Rhino (PCR) Not detected (Not Detect) [facility] Narrative Medical decision making narrative: Patient denies any history of heart attack strokes or diabetes. No lung disease no heart disease or congestive heart failure. Patient became short of breath with coughing in the past 24 hours. Just returned from the [employer] cruise. Unknown sick contacts. Vital signs noted. She did take her blood pressure medication today. Respiratory therapy at bedside to give albuterol nebulizer. Patient has auditory wheezing and wet cough. Patient denies any chest pain. Does admit to bilateral leg swelling. No history of blood clots in legs or lungs. After history and exam CBC CMP blood culture lactic acid procalcitonin respiratory panel all respiratory therapy for treatment chest x-ray Solu-Medrol EKG [facility] Medical records reviewed: No recent visit for this complaint Differential considered: Includes but not limited to pneumonia COVID influenza rhino virus mycoplasma pneumonia CHF Lab Test results independently reviewed as above. Pertinent findings: WBC 7.6 hemoglobin 12.7 sodium 135 potassium 3.7 BNP 1780 troponin 0.022 Respiratory panel positive parainfluenza Independently reviewed EKG normal sinus rhythm rate 92 right bundle-branch block Imaging studies independently reviewed: Chest x-ray ultrasound legs no acute findings Consultations: 4:[address] Yeung contacted, who will call back. 5:[address] Yeung, would like CT chest PE protocol before admitting patient. Treatments: DuoNeb Solu-Medrol Tylenol hydralazine Re-evaluations: 3:31 p.m. per patient is feeling better however still has wheezing and rhonchi. Blood pressure has improved with hydralazine. at bedside. Agree for likely admission. Patient 94% room air but dyspneic and tachypneic when walking in the hallway. Discussion: Appropriate for admission for dyspnea supplemental oxygen echocardiogram continued breathing treatments. Diagnosis: Dyspnea 6:[address] Hsieh. Sign out to Dr. Mchugh. CT chest pending. Dr. Yeung will admit after results. Dr Mchugh - Care of patient signed to me by Dr. Hsieh. Patient pending CT results from [place] [id number] - CT shows no PE or acute process. Patient admitted to hospitalist service for further treatment. Discharge Plan Departure Patient Disposition: Admitted as Observation Clinical Impression: Shortness of Breath, Parainfluenza infection Admit Date/Time: 09/04/24 23:18 Admit Provider: Angy Arizmendi
[2024-09-04 13:18] LABS: Add Manual Diff / Slide Review NO; Basophils Absolute Auto 0 /uL (0-100); Basophils Percent Auto 0.5 % (0-2); Eosinophils Absolute Auto 0 /uL (0-450); Eosinophils Percent Auto 0.6 % (2-4); Hematocrit 39.1 % (36-46); Hemoglobin 12.7 g/dL (12.0-16.0); Lymphocytes Absolute Auto 800 /uL (1100-4500); Lymphocytes Percent Auto 10.9 % (25-40); Mean Corpuscular HGB Conc 32.3 % (30-36); Mean Corpuscular Hemoglobin 27.7 PG (26-34); Mean Corpuscular Volume 85.7 fL (80-100); Monocytes Absolute Auto 800 /uL (0-900); Neutrophils Absolute Auto 5900 /uL (1500-7000); Platelet Count 220 X10^3/uL (150-400); Red Blood Cell Count 4.57 X10^6/uL (4.0-5.2); Red Cell Distribution Width 14.4 % (11.6-14.8); White Blood Cell Count 7.6 X10^3/uL (4.5-11.0)
[2024-09-04 13:25] LABS: Prothrombin Time 11.8 SECONDS (9.4-12.5)
[2024-09-04 13:31] LABS: Lactate (Lactic Acid) 1.5 mmol/L (0.7-2.1)
[2024-09-04 13:32] LABS: Alanine Aminotransferase 14 IU/L (<35); Albumin 4.5 g/dL (3.5-5.0); Albumin Globulin Ratio 1.3 (1.0-2.8); Alkaline Phosphatase 86 U/L (38-126); Aspartate Aminotransferase 39 IU/L (14-36); BUN Creatinine Ratio 18.5 (6-22); Bilirubin Total 0.8 mg/dL (0.2-1.3); Blood Urea Nitrogen 17 mg/dL (7-17); Calcium 9.1 mg/dL (8.4-10.2); Carbon Dioxide 31 mmol/L (22-32); Chloride 97 mmol/L (98-107); Estimated Glomerular Filt Rate > 60 mL/min (>60); Globulin 3.5 g/dL (1.7-4.1); Glucose 135 mg/dL (80-110); HEMOLYSIS < 15 (0-50); Potassium 3.7 mmol/L (3.4-5.1); Sodium 135 mmol/L (137-145)
[2024-09-04 13:43] LABS: NT-proBNP (BNP-Adult 18+) 1780 pg/mL (<450); Troponin I 0.022 ng/mL (0.01-0.034)
[2024-09-04] MEDS: ACETAMINOPHEN 325 MG TABLET 975 MG PO (13:47)
[2024-09-04] MEDS: methylPREDNISolone 125 MG/2 ML VIAL IV (13:49)
[2024-09-04] MEDS: HYDRALAZINE 20 MG/ML VIAL 10 MG IV (13:49)
[2024-09-04 13:54] LABS: COVID-19 CEPHEID 4-PLEX PCR Negative (Negative); Influenza A - CEPHEID Flu A NEGATIVE (NEGATIVE); Influenza B - CEPHEID Flu B NEGATIVE (NEGATIVE); Respiratory Syncytial Virus Negative (Negative)
[2024-09-04 15:40] LABS: Adenovirus Not Detected (Not Detect); B. parapertussis Not Detected (Not Detecte); Bordetella pertussis Not Detected (Not Detect); Chlamydophila pneumoniae Not Detected (Not Detect); Coronavirus 229E Not Detected (Not Detect); Coronavirus HKU1 Not Detected (Not Detect); Coronavirus NL 63 Not Detected (Not Detect); Coronavirus OC43 Not Detected (Not Detect); Human Metapneumovirus Not Detected (Not Detect); Human Rhinovirus/Enterovirus Not Detected (Not Detect); Influenza A Not Detected (Not Detect); Influenza B Not Detected (Not Detect); Mycoplasma pneumoniae Not Detected (Not Detect); Parainfluenza Virus 1 Not Detected (Not Detect); Parainfluenza Virus 2 Not Detected (Not Detect); Parainfluenza Virus 3 Not Detected (Not Detect); Parainfluenza Virus 4 Detected (Not Detect); Respiratory Syncytial Virus Not Detected (Not Detect); SARS- CoV-2 Not Detected (Not Detecte)
--- NOTE | 2024-09-04 15:45 | PC.NURSE ---
Ambulation trial with pulse ox, patient maintained her sats at around 92% but became very tachypneic and was using the gr to support her while walking. At baseline patient does not use an ambulatory device. Provider Мария saw the ambulation and is aware
--- NOTE | 2024-09-04 19:59 | PC.NURSE ---
Friend at bedside earlier is Ralph ([phone])
--- NOTE | 2024-09-04 20:00 | PC.NURSE ---
assessment deferred until patient is back from CT at [facility]
--- NOTE | 2024-09-04 23:15 | P.HP_ITS ---
History of Present Illness History of Present Illness Chief complaint: Cough, SoB PFSH Medical History (Updated 09/04/24 @ 23:20 by Angy Arizmendi MD) Pulmonary HTN Bilateral edema of lower extremity Arthritis Osteoarthritis Diabetes Hearing impaired Bilateral leg cramps Surgical History History of bilateral tubal ligation (1974) History of hysterectomy Hx of appendectomy Hx of bilateral cataract extraction Social History household members: none Smoking Status: Never smoker alcohol intake: never Meds Home Medications and Allergies Home Medications Medication Instructions Recorded Confirmed Type acetaminophen 325 mg tablet 650 mg (2 x 325 mg) PO TID #60 tabs 01/07/21 Rx aspirin 81 mg tablet,delayed 81 mg PO BID #60 tabs 01/07/21 Rx release ibuprofen 400 mg tablet 400 mg PO Q4HR #90 tabs 01/07/21 Rx tramadol 50 mg tablet 50 mg PO Q6H PRN pain #30 tabs 01/07/21 Rx Allergies Allergy/AdvReac Type Severity Reaction Status Date / Time Penicillins Allergy Mild Rash Verified 09/04/24 12:51 Exam Vital Signs (past 8 hours): - 09/04/24 15:33 09/04/24 15:46 09/04/24 15:46 Pulse Rate 95 H 83 Respiratory Rate 38 H 35 H Blood Pressure 165/72 H Pulse Oximetry 92 92 Oxygen Delivery Method Oxygen Flow Rate 09/04/24 16:00 09/04/24 16:01 09/04/24 16:01 Pulse Rate 82 82 Respiratory Rate 26 H 30 H Blood Pressure 166/72 H Pulse Oximetry 92 92 Oxygen Delivery Method Oxygen Flow Rate 09/04/24 16:15 09/04/24 16:15 09/04/24 16:30 Pulse Rate 86 Respiratory Rate 30 H Blood Pressure 161/70 H 167/71 H Pulse Oximetry 93 Oxygen Delivery Method Room Air Oxygen Flow Rate 09/04/24 16:30 09/04/24 16:45 09/04/24 16:45 Pulse Rate 84 83 Respiratory Rate 39 H 34 H Blood Pressure 158/68 H Pulse Oximetry 94 93 Oxygen Delivery Method Nasal Cannula Oxygen Flow Rate 2 09/04/24 17:00 09/04/24 17:00 09/04/24 17:15 Pulse Rate 86 82 Respiratory Rate 28 H Blood Pressure 176/76 H Pulse Oximetry 94 93 Oxygen Delivery Method Nasal Cannula Oxygen Flow Rate 2 09/04/24 17:15 09/04/24 17:30 09/04/24 17:30 Pulse Rate 82 Respiratory Rate 31 H Blood Pressure 156/69 H 158/71 H Pulse Oximetry 97 Oxygen Delivery Method Nasal Cannula Oxygen Flow Rate 2 09/04/24 17:45 09/04/24 17:45 09/04/24 18:00 Pulse Rate 83 Respiratory Rate 31 H Blood Pressure 175/77 H 182/74 H Pulse Oximetry 97 Oxygen Delivery Method Nasal Cannula Oxygen Flow Rate 2 09/04/24 18:00 09/04/24 20:33 09/04/24 21:00 Pulse Rate 82 75 74 Respiratory Rate 27 H 18 Blood Pressure Pulse Oximetry 97 98 97 Oxygen Delivery Method Oxygen Flow Rate 09/04/24 21:01 09/04/24 21:01 09/04/24 21:15 Pulse Rate 74 73 Respiratory Rate 15 15 Blood Pressure 214/90 H Pulse Oximetry 97 97 Oxygen Delivery Method Oxygen Flow Rate 09/04/24 21:15 09/04/24 21:30 09/04/24 21:30 Pulse Rate 66 Respiratory Rate 14 Blood Pressure 197/84 H 184/72 H Pulse Oximetry 97 Oxygen Delivery Method Nasal Cannula Oxygen Flow Rate 2 09/04/24 21:45 09/04/24 21:45 09/04/24 22:00 Pulse Rate 66 70 Respiratory Rate 13 13 Blood Pressure 162/72 H Pulse Oximetry 97 97 Oxygen Delivery Method Nasal Cannula Oxygen Flow Rate 2 09/04/24 22:00 09/04/24 22:15 09/04/24 22:15 Pulse Rate 64 Respiratory Rate 12 Blood Pressure 150/68 H 201/84 H Pulse Oximetry 98 Oxygen Delivery Method Nasal Cannula Oxygen Flow Rate 2 Oxygen Delivery Method Nasal Cannula Oxygen Flow Rate 2 Objective Labs 09/04/24 12:55 09/04/24 12:55 Labs: Laboratory Results - last 24 hr 09/04/24 09/04/24 12:55 14:37 WBC 7.6 RBC 4.57 Hgb 12.7 Hct 39.1 MCV 85.7 MCH 27.7 MCHC 32.3 RDW 14.4 Plt Count 220 Neut % (Auto) 78.0 H Lymph % (Auto) 10.9 L [place] % (Auto) 10.0 Eos % (Auto) 0.6 L Baso % (Auto) 0.5 Neut # (Auto) 5900 Lymph # (Auto) 800 L [place] # (Auto) 800 Eos # (Auto) 0 Baso # (Auto) 0 PT 11.8 INR 1.0 Sodium 135 L Potassium 3.7 Chloride 97 L Carbon Dioxide 31 BUN 17 Creatinine 0.92 Estimated GFR > 60 BUN/Creatinine Ratio 18.5 Glucose 135 H Lactate 1.5 Calcium 9.1 Total Bilirubin 0.8 AST 39 H ALT 14 Alkaline Phosphatase 86 Troponin I 0.022 NT-Pro-B Natriuret Pep 1780 H Total Protein 8.0 Albumin 4.5 Globulin 3.5 Albumin/Globulin Ratio 1.3 Procalcitonin 0.060 Chlamy pneumoniae PCR Not detected Adenovirus (PCR) Not detected B. pertussis DNA (PCR) Not detected B.parapertussis DNA PCR Not detected Coronavirus OC43 (PCR) Not detected Coronavirus HKU1 (PCR) Not detected Coronavirus 229E (PCR) Not detected SARS-CoV-2 (PCR) Negative Not detected Coronavirus NL63 (PCR) Not detected Human Metapneumovir PCR Not detected Influenza A (RT-PCR) Flu a negative Influenza Type A (PCR) Not detected Influenza B (RT-PCR) Flu b negative Influenza Type B (PCR) Not detected M. pneumoniae (PCR) Not detected Parainfluenza 1 (PCR) Not detected Parainfluenza 2 (PCR) Not detected Parainfluenza 3 (PCR) Not detected Parainfluenza 4 (PCR) Detected H RSV (PCR) Negative Not detected Entero/Rhino (PCR) Not detected Assessment & Plan Assessment and plan (1) Acute respiratory failure with hypoxia: Status: Acute (2) Parainfluenza infection: Problem details: Swab + for parainfluenza Status: Acute (3) Elevated brain natriuretic peptide (BNP) level: Status: Acute (4) Bilateral edema of lower extremity: Status: Acute (5) Hypertension not at goal: Status: Acute Time-Based Coding :: [TOTAL MINUTES] spent with patient and on the chart (including review of chart, obtaining history, exam, reviewing outside data, placing orders, documenting exam and treatment plan, and counseling patient) on [DATE].
[2024-09-05] VITALS (8 sets, daily range): BP systolic 138–215; BP diastolic 64–74; PULSE 65–78; RESP 14–24; TEMP 36.1–37; O2SAT 96–99
[2024-09-05] MEDS: methylPREDNISolone 125 MG/2 ML VIAL 60 MG IV (04:52)
[2024-09-05 06:20] LABS: Add Manual Diff / Slide Review NO; Basophils Absolute Auto 0 /uL (0-100); Basophils Percent Auto 0.2 % (0-2); Eosinophils Absolute Auto 0 /uL (0-450); Hemoglobin 12.5 g/dL (12.0-16.0); Lymphocytes Absolute Auto 600 /uL (1100-4500); Lymphocytes Percent Auto 8.2 % (25-40); Mean Corpuscular HGB Conc 32.9 % (30-36); Mean Corpuscular Volume 85.2 fL (80-100); Monocytes Absolute Auto 200 /uL (0-900); Monocytes Percent Auto 3.3 % (3-14); Neutrophils Absolute Auto 6400 /uL (1500-7000); Neutrophils Percent Auto 88.3 % (50-75); Platelet Count 209 X10^3/uL (150-400); Red Blood Cell Count 4.45 X10^6/uL (4.0-5.2); Red Cell Distribution Width 14.3 % (11.6-14.8); White Blood Cell Count 7.2 X10^3/uL (4.5-11.0)
[2024-09-05 06:39] LABS: Blood Urea Nitrogen 20 mg/dL (7-17); Calcium 8.9 mg/dL (8.4-10.2); Carbon Dioxide 31 mmol/L (22-32); Chloride 99 mmol/L (98-107); Estimated Glomerular Filt Rate > 60 mL/min (>60); Glucose 167 mg/dL (80-110); HEMOLYSIS < 15 (0-50); Potassium 4.9 mmol/L (3.4-5.1); Sodium 135 mmol/L (137-145)
--- NOTE | 2024-09-05 06:45 | PC.NURSE ---
NOC: Pt did not produce any urine output since arriving to the unit. Pt stated hx of stress incontinence, offered Purewick d/t weakness and SOB on exertion, pt agreed. Followed up with pt education 2x re: Sarika. Pt was also offered to ambulate to bathroom or commode 2x and both times pt refused. Encouraged consumption of oral fluids, pt stated understanding, will pass on to dayshift. Care continues.
--- NOTE | 2024-09-05 07:50 | PM.PN.1 ---
Subjective Subjective Interval history: Summary: Admitted with parainfluenza and shortness a breath. Subjective: Exam Vital Signs (past 8 hours): - 09/05/24 00:00 09/05/24 00:00 09/05/24 00:28 Temperature 97.7 F Pulse Rate 69 Respiratory Rate 14 Blood Pressure 150/67 H Pulse Oximetry 96 Oxygen Delivery Method Nasal Cannula Oxygen Flow Rate 2 Fraction of Inspired Oxygen 09/05/24 01:16 09/05/24 03:16 09/05/24 05:21 Temperature 98.6 F Pulse Rate 71 78 Respiratory Rate 24 Blood Pressure 194/70 H Pulse Oximetry 99 96 97 Oxygen Delivery Method Nasal Cannula Oxygen Flow Rate 2 2 1 Fraction of Inspired Oxygen 28 Fraction of Inspired Oxygen 28 SaO2/FiO2 Ratio 353 Oxygen Delivery Method Nasal Cannula Oxygen Flow Rate 1 Narrative Exam Narrative: NAD, alert and oriented. Fluent speech. Lungs are clear, normal rate and effort. Heart is regular, no murmur gallop or rub. Abdomen is soft, non distended. Extremities are free of edema. Objective Labs 09/05/24 06:00 09/05/24 06:00 Labs: Laboratory Results - last 24 hr 09/04/24 09/04/24 09/05/24 12:55 14:37 06:00 WBC 7.6 7.2 RBC 4.57 4.45 Hgb 12.7 12.5 Hct 39.1 38.0 MCV 85.7 85.2 MCH 27.7 28.0 MCHC 32.3 32.9 RDW 14.4 14.3 Plt Count 220 209 Neut % (Auto) 78.0 H 88.3 H Lymph % (Auto) 10.9 L 8.2 L [place] % (Auto) 10.0 3.3 Eos % (Auto) 0.6 L 0.0 L Baso % (Auto) 0.5 0.2 Neut # (Auto) 5900 6400 Lymph # (Auto) 800 L 600 L [place] # (Auto) 800 200 Eos # (Auto) 0 0 Baso # (Auto) 0 0 PT 11.8 INR 1.0 Sodium 135 L 135 L Potassium 3.7 4.9 D Chloride 97 L 99 Carbon Dioxide 31 31 BUN 17 20 H Creatinine 0.92 0.77 Estimated GFR > 60 > 60 BUN/Creatinine Ratio 18.5 26.0 H Glucose 135 H 167 H Lactate 1.5 Calcium 9.1 8.9 Total Bilirubin 0.8 AST 39 H ALT 14 Alkaline Phosphatase 86 Troponin I 0.022 NT-Pro-B Natriuret Pep 1780 H Total Protein 8.0 Albumin 4.5 Globulin 3.5 Albumin/Globulin Ratio 1.3 Procalcitonin 0.060 Chlamy pneumoniae PCR Not detected Adenovirus (PCR) Not detected B. pertussis DNA (PCR) Not detected B.parapertussis DNA PCR Not detected Coronavirus OC43 (PCR) Not detected Coronavirus HKU1 (PCR) Not detected Coronavirus 229E (PCR) Not detected SARS-CoV-2 (PCR) Negative Not detected Coronavirus NL63 (PCR) Not detected Human Metapneumovir PCR Not detected Influenza A (RT-PCR) Flu a negative Influenza Type A (PCR) Not detected Influenza B (RT-PCR) Flu b negative Influenza Type B (PCR) Not detected M. pneumoniae (PCR) Not detected Parainfluenza 1 (PCR) Not detected Parainfluenza 2 (PCR) Not detected Parainfluenza 3 (PCR) Not detected Parainfluenza 4 (PCR) Detected H RSV (PCR) Negative Not detected Entero/Rhino (PCR) Not detected PFSH Medical History Pulmonary HTN Bilateral edema of lower extremity Arthritis Osteoarthritis Diabetes Hearing impaired Bilateral leg cramps Surgical History History of bilateral tubal ligation (1974) History of hysterectomy Hx of appendectomy Hx of bilateral cataract extraction Social History household members: none Smoking Status: Never smoker alcohol intake: never Assessment & Plan Assessment & Plan narrative: 1. Acute respiratory failure with hypoxia, 2. Parainfluenza infection 3. Leg edema 4. Hypertension Time-Based Coding :: [TOTAL MINUTES] spent with patient and on the chart (including review of chart, obtaining history, exam, reviewing outside data, placing orders, documenting exam and treatment plan, and counseling patient) on [DATE].
[2024-09-05] MEDS: LOSARTAN 50 MG TABLET PO (08:35)
[2024-09-05] MEDS: ASPIRIN EC 81 MG TABLET PO (08:35)
[2024-09-05] MEDS: ENOXAPARIN 40 MG/0.4 ML SYRINGE SUBCUT (08:36)
--- NOTE | 2024-09-05 13:37 | PM.DS.1 ---
History of Present Illness History of Present Illness Chief complaint: Cough, SoB Narrative: The patient was admitted with cough and shortness a breath and found to be positive for parainfluenza virus 4. She was history of pulmonary hypertension and did have a lot of wheezing leading up to her admission. Her family notes that she was having audible wheezing. Of note, she was returned from a cruise in [place]. Discharge Providers Provider Date of admission: 09/04/24 23:18 Discharge Date: 09/05/24 Primary care physician: Kacey Talbot MD Discharge provider: Pranav Lawson MD Summary Hospital Course Discharge Diagnosis: 1. Acute dyspnea, present on admission and improved. 2. Parainfluenza URI, present on admission and improved. 3. Reactive airway secondary to URI, present on admission and active. Chronic medical issues include: Pulmonary hypertension Chronic leg edema Diabetes mellitus 2 Hospital Course: She was admitted and treated with bronchodilators. She improved substantially and by noon on the she desired to return home. Her lungs were improved with scattered wheezes with expiration and she was breathing comfortably. Her family was in the room, all were in agreement that she would be better served going home and she is deemed stable for discharge. She will use bronchodilators and oral steroids at home for several more days. Status at Discharge Cognitive/behavioral status at discharge: oriented Functional status at discharge: independent ambulation Overall status at discharge: patient is progressing back to baseline Time Spent with Patient Time spent: Greater than 30 minutes Exam Vital Signs (past 8 hours): - 09/05/24 07:00 09/05/24 08:35 09/05/24 12:08 Temperature 97.0 F L 97.8 F Pulse Rate 73 65 Respiratory Rate 18 16 Blood Pressure 215/74 H 215/74 H 138/64 Pulse Oximetry 97 96 Oxygen Flow Rate 0 0 Fraction of Inspired Oxygen 28 SaO2/FiO2 Ratio 353 Oxygen Delivery Method Nasal Cannula Oxygen Flow Rate 0 Narrative Exam Narrative: NAD, alert and oriented. Fluent speech. Lungs are notable for good air movement but diffuse expiratory wheezes are noted, normal rate and effort. Heart is regular, no murmur gallop or rub. Abdomen is soft, non distended. Extremities are free of edema. Objective ECG Impression: Right bundle branch block, rate of 92. Bad baseline and V3. Not markedly abnormal compared to previous electrocardiogram. Imaging Multiple studies:: Radiologist's impression: Leg ultrasound: No findings of deep venous thrombosis in either lower extremity Chest x-ray: No acute pulmonary process. Labs 09/05/24 06:00 09/05/24 06:00 Labs: Laboratory Results - last 24 hr 09/04/24 09/04/24 09/05/24 12:55 14:37 06:00 WBC 7.2 RBC 4.45 Hgb 12.5 Hct 38.0 MCV 85.2 MCH 28.0 MCHC 32.9 RDW 14.3 Plt Count 209 Neut % (Auto) 88.3 H Lymph % (Auto) 8.2 L [place] % (Auto) 3.3 Eos % (Auto) 0.0 L Baso % (Auto) 0.2 Neut # (Auto) 6400 Lymph # (Auto) 600 L [place] # (Auto) 200 Eos # (Auto) 0 Baso # (Auto) 0 Sodium 135 L 135 L Potassium 3.7 4.9 D Chloride 97 L 99 Carbon Dioxide 31 31 BUN 17 20 H Creatinine 0.92 0.77 Estimated GFR > 60 > 60 BUN/Creatinine Ratio 18.5 26.0 H Glucose 135 H 167 H Calcium 9.1 8.9 Total Bilirubin 0.8 AST 39 H ALT 14 Alkaline Phosphatase 86 Troponin I 0.022 NT-Pro-B Natriuret Pep 1780 H Total Protein 8.0 Albumin 4.5 Globulin 3.5 Albumin/Globulin Ratio 1.3 Procalcitonin 0.060 Chlamy pneumoniae PCR Not detected Adenovirus (PCR) Not detected B. pertussis DNA (PCR) Not detected B.parapertussis DNA PCR Not detected Coronavirus OC43 (PCR) Not detected Coronavirus HKU1 (PCR) Not detected Coronavirus 229E (PCR) Not detected SARS-CoV-2 (PCR) Negative Not detected Coronavirus NL63 (PCR) Not detected Human Metapneumovir PCR Not detected Influenza A (RT-PCR) Flu a negative Influenza Type A (PCR) Not detected Influenza B (RT-PCR) Flu b negative Influenza Type B (PCR) Not detected M. pneumoniae (PCR) Not detected Parainfluenza 1 (PCR) Not detected Parainfluenza 2 (PCR) Not detected Parainfluenza 3 (PCR) Not detected Parainfluenza 4 (PCR) Detected H RSV (PCR) Negative Not detected Entero/Rhino (PCR) Not detected PFSH Medical History Pulmonary HTN Bilateral edema of lower extremity Arthritis Osteoarthritis Diabetes Hearing impaired Bilateral leg cramps Surgical History History of bilateral tubal ligation (1974) History of hysterectomy Hx of appendectomy Hx of bilateral cataract extraction Social History household members: none Smoking Status: Never smoker alcohol intake: never Discharge Assessment & Plan Assessment and Plan Assessment: 1. Acute dyspnea, present on admission and improved. 2. Parainfluenza URI, present on admission and improved. 3. Reactive airway secondary to URI, present on admission and active. Chronic medical issues include: Pulmonary hypertension Chronic leg edema Diabetes mellitus 2 Plan of Treatment: Discharge home with symptomatic treatment with a albuterol MDI as needed, prednisone 50 daily for 4 days, as well as Tessalon Perles. Follow up with PCP within the next week, follow up for medical attention if she has increased shortness a breath or chest pain. Discharge Plan Discharge Plan Patient Disposition: Home Provider Discharge Comment: Stable for discharge home. Discharge orders & Medications Prescriptions: New benzonatate 200 mg capsule 200 mg PO BID PRN (Reason: cough) Qty: 30 0RF prednisone 50 mg tablet 50 mg PO DAILY Qty: 5 0RF albuterol sulfate 90 mcg/actuation HFA aerosol inhaler 2 puff inhalation Q6H PRN (Reason: shortness of breath or wheezing) Qty: 8.5 1RF Continued telmisartan 40 mg tablet 40 mg PO DAILY Follow up/Referrals: Kacey Talbot MD [Primary Care Provider] - Diet/Activity/Treatments Diet: Diet as Tolerated Skin/Wound/Dressing Care Report to your healthcare provider any signs of infection, such as:: chills, fever Visit Report/Discharge Packet Instructions: Common Cold Stand Alone Forms: Patient Portal/API, Stroke Signs & Symptoms Discharge Data Primary Care Provider: Kacey Talbot
--- NOTE | 2024-09-05 13:55 | PC.NURSE ---
Pt is dressed and ready for discharge home with family. Pt removed her own IV in her eagerness to go home. Went over d/c instructions with Pt and family-discussed d/c meds, time of last dose, reviewed stroke education, recommended Pt drink plenty of fluids to prevent constipation or dehydration, and to call her PCP if she does not feel better. Pt denied further questions and was taken out via w/c by PHOTOGRAPH EDITOR to POV with family an d all belongings.
--- NOTE | 2024-09-05 14:38 | CM.DANOTE ---
Initial DCP Assessment Visit Note Reviewed EMR and team rounds for status updates. INSPECTOR POISING was unable to meet with pt prior to her d/c due to floor triage needs. Pt resides in an [place] in [place], she is , and her son is her local support person. Family provided transport home earlier this afternoon, no CM d/c needs were identified during her stay. Payor: Medicare PCP: Kacey Talbot Pt is a 84 year-old F who presented to the ED last evening with c/o a cough, SOB, and wheezing for the last 24-hours. She shared that she had just returned from a [employer] cruise. In the ED, she received an Albuterol inhaler tx and was placed on O2. Labs were positive for parainfluenza 4. This morning, pt is feeling much improved, and requested to return home. No further d/c needs indicated for f/u. Discharge Planning/Care Management CM Discharge Assessment Start: 09/05/24 14:35 Freq: Status: Discharge Protocol: Document 09/05/24 14:35 DPL (Rec: 09/05/24 14:38 DPL [id number]) Discharge Planning Assessment Assigned Concierge Receptionist SHABBIR Jasso Advance Directives? No History Provided By Medical Record Expected Length of Stay 1 Has Patient been admitted in last 30 No days? Prior Living Arrangements House Household Members none Type of transporation used prior to Relies on Others admit Needs Assistance With Home Chores / Shopping DME Already Rented / Owned Bath Bench,Elevated Toilet Seat,FWW / Walker Comment 4WW Comment No identified d/c needs identified during her stay. Barriers to Discharge No Discharge Plan Home Transportation Arrangement Family Referrals Initiated None needed Whiteboard Updated in Patient Room with Yes name and ext. # of Concierge Receptionist Review Status In Process Please Provide Date Initial DC 09/05/24 Assessment Was Performed
--- NOTE | 2024-09-05 15:10 | P.HP_ITS ---
<Statement entered by Angy Arizmendi MD - 10/04/24 09:46> This H P not done by me. History of Present Illness History of Present Illness Date Patient Seen: 09/04/24 Chief complaint: Cough, SoB Narrative: *4 y/o F with h/o Diet controlled DM, Pulm HTN, DJD, presented to ED today with productive cough and progressively increasing SOB, and wheezing. Pt has been on a [employer] cruise, and upon disembarking the ship a few days ago, she noted cough that progressively got worse, as well as Shortness of breath, and she could hear herself wheeze. Over last 24 hrs, she could not catch her breath, and was brought to ED by family for evaluation. Denies f/c, Light Headedness, syncope, CP, PND. Has Chronic Bilat LE edema, no h/o [place]/ DVT/ PE. Denies N/V/D , abd pain , dysuria. This Fall ;pt had decvided not to get the Flu Vaccine. In ED she was tachypneic, Hypoxic on RA Afebrile ( Sats in upper 80s) , moderately HTNsive , HR 90s, Was put on 2 L Supp O2, given 2 Duo neb inh treatments, Recd Solumedrol 125 mg IV, with partial improvement. Her t ParaInfluenza swab was +, rest of the Viruses tested, including Infl A/ B, COVID, RSV were Negative. EKG : reviewed by me :NSR RBBB, HR [address]- T wave abn ( unchanged from prior EKG 05/2024 ) CXR : No PNA , Pulm Congestion / no acute changes BNP up at 1780 ( was 477 May 2024) Lactate 1.5 , WBC : unremarkable She recd Hydralazine 10 mg IV in ED Was referred to [facility] for Observation [facility] Medical History (Updated 09/05/24 @ 15:53 by Angy Arizmendi MD) Hypertension not at goal Pulmonary HTN Bilateral edema of lower extremity Arthritis Osteoarthritis Diabetes Hearing impaired Bilateral leg cramps Surgical History History of bilateral tubal ligation (1974) History of hysterectomy Hx of appendectomy Hx of bilateral cataract extraction Social History household members: none Smoking Status: Never smoker alcohol intake: never Meds Home Medications and Allergies Home Medications Medication Instructions Recorded Confirmed Type albuterol sulfate 90 mcg/actuation 2 puff inhalation Q6H PRN 09/05/24 Rx aerosol inhaler shortness of breath or wheezing #8.5 grams benzonatate 200 mg capsule 200 mg PO BID PRN cough #30 caps 09/05/24 Rx prednisone 50 mg tablet 50 mg PO DAILY #5 tabs 09/05/24 Rx telmisartan 40 mg tablet 40 mg PO DAILY BP 09/05/24 09/05/24 History Allergies Allergy/AdvReac Type Severity Reaction Status Date / Time Penicillins Allergy Mild Rash Verified 09/04/24 12:51 Review of Systems Review of Systems ROS: Yes All systems reviewed with the patient and are negative except as otherwise documented Exam Vital Signs (past 8 hours): - 09/05/24 08:35 09/05/24 12:08 Temperature 97.8 F Pulse Rate 65 Respiratory Rate 16 Blood Pressure 215/74 H 138/64 Pulse Oximetry 96 Oxygen Flow Rate 0 Fraction of Inspired Oxygen 28 SaO2/FiO2 Ratio 353 Oxygen Delivery Method Nasal Cannula Oxygen Flow Rate 0 Narrative Exam Narrative: HEENT: EOMI, PRERRL, Normal Conjunctivae, anicteric Sclerae, Neck is supple, No TMG, No Adenopathy ?Chest : Unlabored Respirations. Able to speak in full sentences and answering questions appropriately . ? BS equal bilat.? Coarse Breath sounds bilat, + few Exp Wheezing, no Rales or Rhonchi Heart: Tachycardia? S1 S2, No M/G/Rub Abd : Soft NT, ND, No HSM, BS present and WNL, no flank Tenderness Ext : +2 Edema? bilat legs, no Calf Tenderness bilat. pp 2+ bilat Neuro: Non focal , No abn movements. Cranial N 2-12 tested and Intact ? DTR's 3 + symmetric ? No Motor or Sensory deficit PSYCH: Good Judgement , Mood : normal ( her breathing has improved and she is not coughing after receiving Neb inh Treatments and Solumedrol IV) Objective Labs 09/05/24 06:00 09/05/24 06:00 Labs: Laboratory Results - last 24 hr 09/04/24 09/05/24 14:37 06:00 WBC 7.2 RBC 4.45 Hgb 12.5 Hct 38.0 MCV 85.2 MCH 28.0 MCHC 32.9 RDW 14.3 Plt Count 209 Neut % (Auto) 88.3 H Lymph % (Auto) 8.[address] [place] % (Auto) 3.3 Eos % (Auto) 0.0 L Baso % (Auto) 0.2 Neut # (Auto) 6400 Lymph # (Auto) [address] [place] # (Auto) 200 Eos # (Auto) 0 Baso # (Auto) 0 Sodium 135 L Potassium 4.9 D Chloride 99 Carbon Dioxide 31 BUN 20 H Creatinine 0.77 Estimated GFR > 60 BUN/Creatinine Ratio 26.0 H Glucose 167 H Calcium 8.9 Chlamy pneumoniae PCR Not detected Adenovirus (PCR) Not detected B. pertussis DNA (PCR) Not detected B.parapertussis DNA PCR Not detected Coronavirus OC43 (PCR) Not detected Coronavirus HKU1 (PCR) Not detected Coronavirus 229E (PCR) Not detected SARS-CoV-2 (PCR) Not detected Coronavirus NL63 (PCR) Not detected Human Metapneumovir PCR Not detected Influenza Type A (PCR) Not detected Influenza Type B (PCR) Not detected M. pneumoniae (PCR) Not detected Parainfluenza 1 (PCR) Not detected Parainfluenza 2 (PCR) Not detected Parainfluenza 3 (PCR) Not detected Parainfluenza 4 (PCR) Detected H RSV (PCR) Not detected Entero/Rhino (PCR) Not detected Assessment & Plan Assessment and plan (1) Acute respiratory failure with hypoxia: Problem details: Sec to Parainfluenza 4 in pt who had declined Influenza vaccine in the Fall this year Requiring 2 L NC supp O2 , with O2 sats improvement Continous O2 sat monitoring , titrate FiO2 to 92-93% Neb inh q 2 hrs prn Status: Acute (2) Parainfluenza infection: Problem details: Swab + for parainfluenza Status: Acute (3) Bilateral edema of lower extremity: Problem details: Has H/o Pulm HTN Echo 06/11/24: LVEF 73-80% Likely has chronic Diastolic Heart Failure Pro BNP up likely sec to moderate Pulm HTN Elev Pro BNP No central Fluid Overload. Pt shall resume Telmisartan / home dose Status: Acute (4) Hypertension not at goal: Problem details: Sec to stress of Hypoxia, Tachypnea/ Pt has h/o HTN at baseline Recd Hydralazine 10 mg IV x once in ED , continue home anti HTN med/s Cont Cardiac monitoring Status: Acute Time-Based Coding :: [TOTAL MINUTES] spent with patient and on the chart (including review of chart, obtaining history, exam, reviewing outside data, placing orders, documenting exam and treatment plan, and counseling patient) on [DATE].
== END 2024-09-05 14:01 | disposition home or self-care (01) | DRG 189 ==
LOC: ED 17:56 → AC 09-05 07:30
PROVIDERS: Admitting Provider Hospitalist; Emergency Provider Emergency Medicine; PCP Internal Medicine; Referring Provider Emergency Medicine; Visit Provider Hospitalist
DX: J96.01 Acute respiratory failure with hypoxia (principal); J06.9 Acute upper respiratory infection, unspecified; R60.0 Localized edema; B97.89 Other viral agents as the cause of diseases classified elsewhere; J45.909 Unspecified asthma, uncomplicated; I27.20 Pulmonary hypertension, unspecified; E11.9 Type 2 diabetes mellitus without complications; R79.89 Other specified abnormal findings of blood chemistry
CPT/HCPCS: 0241U; 36415; 71045; 80048; 80053; 82962; 83605; 83880; 84145; 84484; 85025; 85610; 87040; 87633; 93005; 93970; 94640; 94762; 96374; 96375; 99284; 99285; J0360; J1650; J2919; J7613